=== PATIENT | female | born 1960 | race Caucasian/White ===

== ENCOUNTER 2016-07-28 14:59 | Emergency (ER) | payer OTHER ==
[~2016-07-28] VITALS: Ht 182.9 cm; Wt 77.1 kg
[~2016-07-28 14:59] MED LIST: FLEXERIL10 MG PO; LEVOTHYROXIN0.075 M1 PO; LEVOTHYROXIN0.112 M1 PO; LISINOPRIL 10MG10 MG PO; LORTAB 500 MG-71 TAB PO; MEDROL 4MG. DOSE4 MG PO; MOBIC7.5 MG PO; NORCO 325 MG-51 TAB PO; SKELAXIN 800MG800 MG PO; ULTRAM 50 MG TA50 MG PO; VOLTAREN75 MG PO; XANAX 0.25MG0.25 MG PO; ZOCOR20 MG PO
--- OUTSIDE RECORDS SUMMARY | 2016-07-28 15:42 | External Medical Summary Rpt ---
Author Author [employer] Organization [employer] Address Unknown Phone Unavailable Purpose Continuity of Care Document - through 2016
--- OUTSIDE RECORDS SUMMARY | 2016-07-28 15:42 | External Medical Summary Rpt ---
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 REGION 847.2 847.2 09-11-2012 [facility] LUMBAR [facility] REGION E813.0 E813.0 09-11-2012 [facility] E849.5 E849.5 09-11-2012 [facility] C34.92 Malignant neoplasm of unspecified part of left bronchus or lung Z95.828 Presence of other vascular implants and grafts Allergies, Adverse Reactions, Alerts Type Drug Allergy Adverse Reaction to Substance Substance Reaction Severity Contrast Media, Unknown Unknown Iodine Related TAPE REDNESS/BLISTERS Mild Medications Na ND Rx Da Fi Fi Am Da Di Ph RX Ph St me C No te ll ll ou ys ag ar # ys at rm s nt no ma ic us Or Da si cy ia de te s n re d MA 00 06 0 No PA 90 -2 P 41 8- Lo 32 98 20 ng 5 26 13 er MG 1 Ac TA ti BL ve ET Vital Signs 09-11-2012 11:04 Name Value Interpretat Reference Comment ion Range BP 104 mm[Hg] Diastolic BP Systolic 141 mm[Hg] Heart 71 /min Rate/Pulse O2% 99 % Respiratory 18 /min Rate 09-11-2012 10:23 Name Value Interpretat Reference Comment ion Range BP 105 mm[Hg] Diastolic BP Systolic 148 mm[Hg] Heart 72 /min Rate/Pulse O2% 98 % Respiratory 18 /min Rate Results Labs Lab Lab Date Result Refere Interp Status Commen Order Detail nces retati t Range on Creat Bld-mCnc (07-18-2016 14:46) Creat 1.00 0.60-1. complet BldA-mC 017 mg/dL 30 ed nc 14:46 UA Dipstick Pnl Ur (07-18-2016 14:13) Color [id number] Yellow, complet Ur 017 09 Straw ed 14:13 Yellow color SCT Clarity [id number] Clear complet Ur 017 01 ed 14:13 Clear SCT pH Ur 6.0 5.0-8.0 complet Strip.a 017 ed uto 14:13 Sp Gr 1.010 1.005-1 complet Ur 017 .030 ed Strip 14:13 Glucose 3766556 Negativ complet Ur 017 09 e ed Strip-m 14:13 Negativ Cnc e SCT Ketones 1116565 Negativ complet Ur Ql 017 09 e ed Strip 14:13 Negativ e SCT Bilirub [id number] Negativ complet Ur Ql 017 09 e ed Strip 14:13 Negativ e SCT Hgb Ur [id number] Negativ complet Ql 017 09 e ed Strip.a 14:13 Negativ uto e SCT Prot Ur [id number] Negativ complet Ql 017 09 e ed Strip 14:13 Negativ e SCT Leukocy [id number] Negativ complet te 017 09 e ed esteras 14:13 Negativ e Ur Ql e SCT Strip.a uto Nitrite [id number] Negativ complet Ur Ql 017 09 e ed Strip 14:13 Negativ e SCT Urobili 0.2 0.2 - complet nogen 017 E.U./dL 1.0 ed Ur Ql 14:13 E.U./dL Strip CBC W Diff pnl,unspecified Bld (07-18-2016 14:12) WBC 05-04-2 9.40 3.50-10 complet nRBC 017 10*3/mm .80 ed cor # 14:12 3 Bld RBC # 05-04-2 2.80 3.89-5. complet Bld 017 10*6/mm 14 ed Auto 14:12 3 Hgb -04-2 8.9 11.5-15 complet Bld-mCn 017 g/dL .5 ed c 14:12 Hct VFr 07-18-2 27.8 % 34.5-44 complet Bld 017 .0 ed Auto 14:12 RDW RBC -04-2 26.9 % 11.3-14 complet 017 .5 ed Auto-Rt 14:12 o MCV RBC 04-2 99.6 fL 80.0-99 complet Auto 017 .0 ed 14:12 MCH RBC 04-2 31.8 pg 27.0-31 complet Qn 017 .0 ed Auto 14:12 MCHC 04-2 31.9 32.0-36 complet RBC 017 g/dL .0 ed Auto-mC 14:12 nc PMV Bld 07-18-2 6.6 fL 6.0-12. complet Auto 017 0 ed 14:12 Platele 07-18-2 463 150-450 complet t # Bld 017 10*3/mm ed Auto 14:12 3 Neutrop 07-18-2 84.5 % 41.0-71 complet hils/le 017 .0 ed uk NFr 14:12 Bld Auto Lymphoc 04-2 10.2 % 24.0-44 complet ytes/le 017 .0 ed uk NFr 14:12 Bld Auto Monocyt -04-2 5.3 % 0.0-12. complet es/leuk 017 0 ed NFr 14:12 Bld Auto Neutrop 04-2 7.90 1.50-8. complet hils # 017 10*3/mm 30 ed Bld 14:12 3 Auto Lymphoc -04-2 1.00 0.60-4. complet ytes # 017 10*3/mm 80 ed Bld 14:12 3 Auto Monocyt -04-2 0.50 0.00-1. complet es # 017 10*3/mm 00 ed Bld 14:12 3 Auto Comp Metab 1998 Pnl SerPl (07-18-2016 14:12) Glucose 122 70-100 complet 017 mg/dL ed Bld-mCn 14:12 c BUN 20 9-23 complet Bld-mCn 017 mg/dL ed c 14:12 Creat 1.00 0.60-1. complet Bld-mCn 017 mg/dL 30 ed c 14:12 Sodium 141 132-146 complet Bld-sCn 017 mmol/L ed c 14:12 Potassi 4.2 3.5-5.5 complet um 017 mmol/L ed Bld-sCn 14:12 c Chlorid 105 99-109 complet e 017 mmol/L ed SerPl-s 14:12 Cnc CO2 27.0 20.0-31 complet SerPl-s 017 mmol/L .0 ed Cnc 14:12 Calcium 9.2 8.7-10. complet 017 mg/dL 4 ed XXX-sCn 14:12 c Prot 6.8 5.7-8.2 complet SerPl-m 017 g/dL ed Cnc 14:12 Albumin 4.20 3.20-4. complet 017 g/dL 80 ed SerPl-m 14:12 Cnc ALT 43 U/L 7-40 complet SerPl w 017 ed 14:12 P-5'-P- cCnc AST 26 U/L 0-33 complet SerPl-c 017 ed Cnc 14:12 ALP 104 U/L 25-100 complet SerPl-c 017 ed Cnc 14:12 Bilirub 0.2 0.3-1.2 complet 017 mg/dL ed SerPl-m 14:12 Cnc GFR/BSA 58 >60 complet .pred 017 mL/min/ ed SerPl 14:12 1.73 MDRD-Ar VRat Globuli 2.6 complet n Ur 017 gm/dL ed Elph-mC 14:12 nc Albumin 1.6 1.5-2.5 complet /Glob 017 g/dL ed SerPl 14:12 BUN/Cre 05-04-2 20.0 7.0-25. complet at 017 0 ed SerPl 14:12 Anion 2 9.0 3.0-11. complet Gap3 017 mmol/L 0 ed SerPl-s 14:12 Cnc Creat Bld-mCnc (06-27-2016 13:33) Creat 06-27-2 0.90 0.60-1. complet BldA-mC 017 mg/dL 30 ed nc 13:33 Comp Metab 1998 Pnl SerPl (06-27-2016 13:14) Albumin 06-27-2 4.20 3.20-4. complet 017 g/dL 80 ed SerPl-m 13:14 Cnc AST 31 U/L 0-33 complet SerPl-c 017 ed Cnc 13:14 ALP 84 U/L 25-100 complet SerPl-c 017 ed Cnc 13:14 Bilirub 0.3 0.3-1.2 complet 017 mg/dL ed SerPl-m 13:14 Cnc GFR/BSA 65 >60 complet .pred 017 mL/min/ ed SerPl 13:14 1.73 MDRD-Ar VRat Globuli 2.7 complet n Ur 017 gm/dL ed Elph-mC 13:14 nc Albumin 1.6 1.5-2.5 complet /Glob 017 g/dL ed SerPl 13:14 BUN/Cre 32.2 7.0-25. complet at 017 0 ed SerPl 13:14 Anion 06-27-2 5.0 3.0-11. complet Gap3 017 mmol/L 0 ed SerPl-s 13:14 Cnc Glucose 125 70-100 complet 017 mg/dL ed Bld-mCn 13:14 c Prot 6.9 5.7-8.2 complet SerPl-m 017 g/dL ed Cnc 13:14 Calcium 9.5 8.7-10. complet 017 mg/dL 4 ed XXX-sCn 13:14 c CO2 29.0 20.0-31 complet SerPl-s 017 mmol/L .0 ed Cnc 13:14 Chlorid 04-13-2 103 99-109 complet e 017 mmol/L ed SerPl-s 13:14 Cnc Potassi 4.0 3.5-5.5 complet um 017 mmol/L ed Bld-sCn 13:14 c Sodium 137 132-146 complet Bld-sCn 017 mmol/L ed c 13:14 Creat 0.90 0.60-1. complet Bld-mCn 017 mg/dL 30 ed c 13:14 BUN 29 9-23 complet Bld-mCn 017 mg/dL ed c 13:14 ALT 50 U/L 7-40 complet SerPl w 017 ed 13:14 P-5'-P- cCnc CBC W Diff pnl,unspecified Bld (06-27-2016 13:14) Monocyt 0.60 0.00-1. complet es # 017 10*3/mm 00 ed Bld 13:14 3 Auto Lymphoc 1.40 0.60-4. complet ytes # 017 10*3/mm 80 ed Bld 13:14 3 Auto Neutrop 5.30 1.50-8. complet hils # 017 10*3/mm 30 ed Bld 13:14 3 Auto Monocyt 8.0 % 0.0-12. complet es/leuk 017 0 ed NFr 13:14 Bld Auto Lymphoc 19.5 % 24.0-44 complet ytes/le 017 .0 ed uk NFr 13:14 Bld Auto Neutrop 72.5 % 41.0-71 complet hils/le 017 .0 ed uk NFr 13:14 Bld Auto Platele 555 150-450 complet t # Bld 017 10*3/mm ed Auto 13:14 3 PMV Bld 6.4 fL 6.0-12. complet Auto 017 0 ed 13:14 MCHC 32.8 32.0-36 complet RBC 017 g/dL .0 ed Auto-mC 13:14 nc MCH RBC 31.3 pg 27.0-31 complet Qn 017 .0 ed Auto 13:14 MCV RBC 95.4 fL 80.0-99 complet Auto 017 .0 ed 13:14 RDW RBC 24.0 % 11.3-14 complet 017 .5 ed Auto-Rt 13:14 o Hct VFr 29.4 % 34.5-44 complet Bld 017 .0 ed Auto 13:14 Hgb 9.7 11.5-15 complet Bld-mCn 017 g/dL .5 ed c 13:14 RBC # 06-27-2 3.09 3.89-5. complet Bld 017 10*6/mm 14 ed Auto 13:14 3 WBC 7.30 3.50-10 complet nRBC 017 10*3/mm .80 ed cor # 13:14 3 Bld Comp Metab 1997 Pnl SerPl (06-23-2016 11:27) Anion 7.0 3.0-11. complet Gap3 017 mmol/L 0 ed SerPl-s 11:27 Cnc BUN/Cre 30.0 7.0-25. complet at 017 0 ed SerPl 11:27 Albumin 1.7 1.5-2.5 complet /Glob 017 g/dL ed SerPl 11:27 Globuli 2.6 complet n Ur 017 gm/dL ed Elph-mC 11:27 nc GFR/BSA 58 >60 complet .pred 017 mL/min/ ed SerPl 11:27 1.73 MDRD-Ar VRat Bilirub 0.2 0.3-1.2 complet 017 mg/dL ed SerPl-m 11:27 Cnc ALP 107 U/L 25-100 complet SerPl-c 017 ed Cnc 11:27 AST 29 U/L 0-33 complet SerPl-c 017 ed Cnc 11:27 ALT 56 U/L 7-40 complet SerPl w 017 ed 11:27 P-5'-P- cCnc Albumin 4.30 3.20-4. complet 017 g/dL 80 ed SerPl-m 11:27 Cnc Prot 6.9 5.7-8.2 complet SerPl-m 017 g/dL ed Cnc 11:27 Calcium 9.6 8.7-10. complet 017 mg/dL 4 ed XXX-sCn 11:27 c CO2 25.0 20.0-31 complet SerPl-s 017 mmol/L .0 ed Cnc 11:27 Chlorid 109 99-109 complet e 017 mmol/L ed SerPl-s 11:27 Cnc Potassi 4.5 3.5-5.5 complet um 017 mmol/L ed Bld-sCn 11:27 c Sodium 141 132-146 complet Bld-sCn 017 mmol/L ed c 11:27 Creat 1.00 0.60-1. complet Bld-mCn 017 mg/dL 30 ed c 11:27 BUN 30 9-23 complet Bld-mCn 017 mg/dL ed c 11:27 Glucose 84 70-100 complet 017 mg/dL ed Bld-mCn 11:27 c Total Cells Counted Bld (06-23-2016 11:27) Plat [id number] Normal complet morph 017 01 ed Bld 11:27 Normal result SCT WBC [id number] Normal complet morph 017 01 ed Bld 11:27 Normal result SCT RBC [id number] Normal complet morph 017 01 ed Bld 11:27 Normal result SCT CBC W Diff pnl,unspecified Bld (06-23-2016 11:27) MCV RBC 98.5 fL 80.0-99 complet Auto 017 .0 ed 11:27 Hct VFr 32.9 % 34.5-44 complet Bld 017 .0 ed Auto 11:27 Hgb 10.5 11.5-15 complet Bld-mCn 017 g/dL .5 ed c 11:27 RBC # 09-2 3.34 3.89-5. complet Bld 017 10*6/mm 14 ed Auto 11:27 3 WBC 06-23- 9.59 3.50-10 complet nRBC 017 10*3/mm .80 ed cor # 11:27 3 Bld Imm 0.09 0.00-0. complet Granulo 017 10*3/mm 03 ed cytes # 11:27 3 Bld Basophi 09-2 0.02 0.00-0. complet ls # 017 10*3/mm 20 ed Bld 11:27 3 Auto Eosinop 09-2 0.03 0.10-0. complet hil # 017 10*3/mm 30 ed Bld 11:27 3 Auto Monocyt 09-2 1.03 0.00-1. complet es # 017 10*3/mm 00 ed Bld 11:27 3 Auto Lymphoc 09-2 3.91 0.60-4. complet ytes # 017 10*3/mm 80 ed Bld 11:27 3 Auto Neutrop 06-23-2 4.51 1.50-8. complet hils # 017 10*3/mm 30 ed Bld 11:27 3 Auto Imm 06-23-2 0.9 % 0.0-0.6 complet Granulo 017 ed cytes/l 11:27 euk NFr Bld Basophi 2 0.2 % 0.0-1.0 complet ls/leuk 017 ed NFr 11:27 Bld Auto Eosinop 06-23-2 0.3 % 0.0-3.0 complet hil/patricia 017 ed k NFr 11:27 Bld Auto Monocyt 2 10.7 % 0.0-12. complet es/leuk 017 0 ed NFr 11:27 Bld Auto Lymphoc 06-23-2 40.8 % 24.0-44 complet ytes/le 017 .0 ed uk NFr 11:27 Bld Auto Neutrop 06-23-2 47.1 % 41.0-71 complet hils/le 017 .0 ed uk NFr 11:27 Bld Auto Platele 387 150-450 complet t # Bld 017 10*3/mm ed Auto 11:27 3 PMV Bld 9.2 fL 6.0-12. complet Auto 017 0 ed 11:27 RDW RBC 65.2 fl 37.0-54 complet Auto 017 .0 ed 11:27 RDW RBC 06-23-2 20.4 % 11.3-14 complet 017 .5 ed Auto-Rt 11:27 o MCHC 31.9 32.0-36 complet RBC 017 g/dL .0 ed Auto-mC 11:27 nc MCH RBC 31.4 pg 27.0-31 complet Qn 017 .0 ed Auto 11:27 aPTT PPP (06-11-2016 07:48) aPTT 24.8 24.0-31 complet PPP 017 seconds .0 ed 07:48 PT PPP (06-11-2016 07:48) INR PPP 0.92 complet 017 ed 07:48 PT PPP 10.0 9.6-11. complet 017 Seconds 5 ed 07:48 Platelet # BldCo (06-11-2016 07:48) Platele 378 150-450 complet t # Bld 017 10*3/mm ed Auto 07:48 3 Creat Bld-mCnc (06-06-2016 12:47) Creat 1.10 0.60-1. complet BldA-mC 017 mg/dL 30 ed nc 12:47 Comp Metab 1998 Pnl SerPl (06-06-2016 11:48) Anion 6.0 3.0-11. complet Gap3 017 mmol/L 0 ed SerPl-s 11:48 Cnc BUN/Cre 22.0 7.0-25. complet at 017 0 ed SerPl 11:48 Albumin 1.4 1.5-2.5 complet /Glob 017 g/dL ed SerPl 11:48 Globuli 3.0 complet n Ur 017 gm/dL ed Elph-mC 11:48 nc GFR/BSA 58 >60 complet .pred 017 mL/min/ ed SerPl 11:48 1.73 MDRD-Ar VRat Bilirub 0.2 0.3-1.2 complet 017 mg/dL ed SerPl-m 11:48 Cnc ALP 116 U/L 25-100 complet SerPl-c 017 ed Cnc 11:48 AST 27 U/L 0-33 complet SerPl-c 017 ed Cnc 11:48 ALT 42 U/L 7-40 complet SerPl w 017 ed 11:48 P-5'-P- cCnc Albumin 06-06-2 4.30 3.20-4. complet 017 g/dL 80 ed SerPl-m 11:48 Cnc Prot 23-2 7.3 5.7-8.2 complet SerPl-m 017 g/dL ed Cnc 11:48 Calcium 23-2 9.7 8.7-10. complet 017 mg/dL 4 ed XXX-sCn 11:48 c CO2 23-2 26.0 20.0-31 complet SerPl-s 017 mmol/L .0 ed Cnc 11:48 Chlorid 23-2 107 99-109 complet e 017 mmol/L ed SerPl-s 11:48 Cnc Potassi 06-06-2 4.6 3.5-5.5 complet um 017 mmol/L ed Bld-sCn 11:48 c Sodium 06-06-2 139 132-146 complet Bld-sCn 017 mmol/L ed c 11:48 Creat 06-06-2 1.00 0.60-1. complet Bld-mCn 017 mg/dL 30 ed c 11:48 BUN 23-2 22 9-23 complet Bld-mCn 017 mg/dL ed c 11:48 Glucose 23-2 95 70-100 complet 017 mg/dL ed Bld-mCn 11:48 c UA Dipstick Pnl Ur (06-06-2016 11:48) Urobili 23-2 0.2 0.2 - complet nogen 017 E.U./dL 1.0 ed Ur Ql 11:48 E.U./dL Strip Nitrite 06-06- [id number] Negativ complet Ur Ql 017 09 e ed Strip 11:48 Negativ e SCT Leukocy 2971219 Negativ complet te 017 09 e ed esteras 11:48 Negativ e Ur Ql e SCT Strip.a uto Prot Ur 7234609 Negativ complet Ql 017 09 e ed Strip 11:48 Negativ e SCT Hgb Ur 9797902 Negativ complet Ql 017 04 e ed Strip.a 11:48 Small uto SCT Bilirub 6712366 Negativ complet Ur Ql 017 09 e ed Strip 11:48 Negativ e SCT Ketones 23-2 6027837 Negativ complet Ur Ql 017 09 e ed Strip 11:48 Negativ e SCT Glucose 23-2 2477963 Negativ complet Ur 017 09 e ed Strip-m 11:48 Negativ Cnc e SCT Sp Gr 06-06-2 1.025 1.005-1 complet Ur 017 .030 ed Strip 11:48 pH Ur 23-2 6.0 5.0-8.0 complet Strip.a 017 ed uto 11:48 Clarity -23-2 [id number] Clear complet Ur 017 01 ed 11:48 Clear SCT Color -23-2 5324941 Yellow, complet Ur 017 09 Straw ed 11:48 Yellow color SCT CBC W Diff pnl,unspecified Bld (06-06-2016 11:48) Monocyt -23-2 0.70 0.00-1. complet es # 017 10*3/mm 00 ed Bld 11:48 3 Auto Lymphoc -23-2 1.70 0.60-4. complet ytes # 017 10*3/mm 80 ed Bld 11:48 3 Auto Neutrop -23-2 5.50 1.50-8. complet hils # 017 10*3/mm 30 ed Bld 11:48 3 Auto Monocyt -23-2 9.4 % 0.0-12. complet es NFr 017 0 ed Bld 11:48 Auto Lymphoc 03-23-2 21.2 % 24.0-44 complet ytes 017 .0 ed NFr Bld 11:48 Auto Neutrop -23-2 69.4 % 41.0-71 complet hils 017 .0 ed NFr Bld 11:48 Auto Platele -23-2 634 150-450 complet t # Bld 017 10*3/mm ed Auto 11:48 3 PMV Bld -23-2 6.4 fL 6.0-12. complet Auto 017 0 ed 11:48 MCHC -23-2 31.3 32.0-36 complet RBC 017 g/dL .0 ed Auto-mC 11:48 nc MCH RBC -23-2 29.1 pg 27.0-31 complet Qn 017 .0 ed Auto 11:48 MCV RBC 03-23-2 93.2 fL 80.0-99 complet Auto 017 .0 ed 11:48 RDW RBC 06-06-2 19.3 % 11.3-14 complet 017 .5 ed Auto-Rt 11:48 o Hct VFr 2 33.0 % 34.5-44 complet Bld 017 .0 ed Auto 11:48 Hgb 06-06-2 10.3 11.5-15 complet Bld-mCn 017 g/dL .5 ed c 11:48 RBC # 23-2 3.54 3.89-5. complet Bld 017 10*6/mm 14 ed Auto 11:48 3 WBC 06-06-2 7.90 3.50-10 complet nRBC 017 10*3/mm .80 ed cor # 11:48 3 Bld Creat Bld-mCnc (05-16-2016 10:53) Creat 05-16-2 0.80 0.60-1. complet BldA-mC 017 mg/dL 30 ed nc 10:53 CBC W Diff pnl,unspecified Bld (05-16-2016 10:28) Monocyt 02-2 0.60 0.00-1. complet es # 017 10*3/mm 00 ed Bld 10:28 3 Auto Lymphoc 05-16-2 1.70 0.60-4. complet ytes # 017 10*3/mm 80 ed Bld 10:28 3 Auto Neutrop 05-16-2 7.20 1.50-8. complet hils # 017 10*3/mm 30 ed Bld 10:28 3 Auto Monocyt 05-16-2 5.8 % 0.0-12. complet es NFr 017 0 ed Bld 10:28 Auto Lymphoc 05-16-2 18.3 % 24.0-44 complet ytes 017 .0 ed NFr Bld 10:28 Auto Neutrop 2 75.9 % 41.0-71 complet hils 017 .0 ed NFr Bld 10:28 Auto Platele 627 150-450 complet t # Bld 017 10*3/mm ed Auto 10:28 3 PMV Bld 6.7 fL 6.0-12. complet Auto 017 0 ed 10:28 MCHC 31.9 32.0-36 complet RBC 017 g/dL .0 ed Auto-mC 10:28 nc MCH RBC 29.1 pg 27.0-31 complet Qn 017 .0 ed Auto 10:28 MCV RBC 05-16- 91.1 fL 80.0-99 complet Auto 017 .0 ed 10:28 RDW RBC 05-16-2 16.3 % 11.3-14 complet 017 .5 ed Auto-Rt 10:28 o Hct VFr 36.4 % 34.5-44 complet Bld 017 .0 ed Auto 10:28 Hgb 11.6 11.5-15 complet Bld-mCn 017 g/dL .5 ed c 10:28 RBC # 05-16-2 4.00 3.89-5. complet Bld 017 10*6/mm 14 ed Auto 10:28 3 WBC 9.50 3.50-10 complet nRBC 017 10*3/mm .80 ed cor # 10:28 3 Bld UA Dipstick Pnl Ur (05-16-2016 10:28) Urobili 0.2 0.2 - complet nogen 017 E.U./dL 1.0 ed Ur Ql 10:28 E.U./dL Strip Nitrite [id number] Negativ complet Ur Ql 017 09 e ed Strip 10:28 Negativ e SCT Leukocy 1071127 Negativ complet te 017 09 e ed esteras 10:28 Negativ e Ur Ql e SCT Strip.a uto Prot Ur 9785704 Negativ complet Ql 017 09 e ed Strip 10:28 Negativ e SCT Hgb Ur 4203724 Negativ complet Ql 017 09 e ed Strip.a 10:28 Negativ uto e SCT Bilirub 1440865 Negativ complet Ur Ql 017 09 e ed Strip 10:28 Negativ e SCT Ketones 8142092 Negativ complet Ur Ql 017 09 e ed Strip 10:28 Negativ e SCT Glucose 5506238 Negativ complet Ur 017 09 e ed Strip-m 10:28 Negativ Cnc e SCT Sp Gr 03-02-2 1.010 1.005-1 complet Ur 017 .030 ed Strip 10:28 pH Ur 6.0 5.0-8.0 complet Strip.a 017 ed uto 10:28 Clarity 5620841 Clear complet Ur 017 01 ed 10:28 Clear SCT Color 5930343 Yellow, complet Ur 017 09 Straw ed 10:28 Yellow color SCT Comp Metab 1998 Pnl SerPl (05-16-2016 10:27) Anion 6.0 3.0-11. complet Gap3 017 mmol/L 0 ed SerPl-s 10:27 Cnc BUN/Cre 22.5 7.0-25. complet at 017 0 ed SerPl 10:27 Albumin 1.5 1.5-2.5 complet /Glob 017 g/dL ed SerPl 10:27 Globuli 3.0 complet n Ur 017 gm/dL ed Elph-mC 10:27 nc GFR/BSA 74 >60 complet .pred 017 mL/min/ ed SerPl 10:27 1.73 MDRD-Ar VRat Bilirub 0.3 0.3-1.2 complet 017 mg/dL ed SerPl-m 10:27 Cnc ALP 97 U/L 25-100 complet SerPl-c 017 ed Cnc 10:27 AST 16 U/L 0-33 complet SerPl-c 017 ed Cnc 10:27 ALT 35 U/L 7-40 complet SerPl w 017 ed 10:27 P-5'-P- cCnc Albumin 4.40 3.20-4. complet 017 g/dL 80 ed SerPl-m 10:27 Cnc Prot 7.4 5.7-8.2 complet SerPl-m 017 g/dL ed Cnc 10:27 Calcium 9.8 8.7-10. complet 017 mg/dL 4 ed XXX-sCn 10:27 c CO2 26.0 20.0-31 complet SerPl-s 017 mmol/L .0 ed Cnc 10:27 Chlorid 104 99-109 complet e 017 mmol/L ed SerPl-s 10:27 Cnc Potassi 4.0 3.5-5.5 complet um 017 mmol/L ed Bld-sCn 10:27 c Sodium 136 132-146 complet Bld-sCn 017 mmol/L ed c 10:27 Creat 0.80 0.60-1. complet Bld-mCn 017 mg/dL 30 ed c 10:27 BUN 18 9-23 complet Bld-mCn 017 mg/dL ed c 10:27 Glucose 109 70-100 complet 017 mg/dL ed Bld-mCn 10:27 c Creat Bld-mCnc (04-25-2016 09:57) Creat 0.90 0.60-1. complet BldA-mC 017 mg/dL 30 ed nc 09:57 Comp Metab 1998 Pnl SerPl (04-25-2016 09:41) Anion 11.0 3.0-11. complet Gap3 017 mmol/L 0 ed SerPl-s 09:41 Cnc BUN/Cre 27.5 7.0-25. complet at 017 0 ed SerPl 09:41 Albumin 1.7 1.5-2.5 complet /Glob 017 g/dL ed SerPl 09:41 Globuli 2.9 complet n Ur 017 gm/dL ed Elph-mC 09:41 nc GFR/BSA 74 >60 complet .pred 017 mL/min/ ed SerPl 09:41 1.73 MDRD-Ar VRat Bilirub 0.3 0.3-1.2 complet 017 mg/dL ed SerPl-m 09:41 Cnc ALP 100 U/L 25-100 complet SerPl-c 017 ed Cnc 09:41 AST 20 U/L 0-33 complet SerPl-c 017 ed Cnc 09:41 ALT 29 U/L 7-40 complet SerPl w 017 ed 09:41 P-5'-P- cCnc Albumin 4.80 3.20-4. complet 017 g/dL 80 ed SerPl-m 09:41 Cnc Prot 7.7 5.7-8.2 complet SerPl-m 017 g/dL ed Cnc 09:41 Calcium 10.1 8.7-10. complet 017 mg/dL 4 ed XXX-sCn 09:41 c CO2 22.0 20.0-31 complet SerPl-s 017 mmol/L .0 ed Cnc 09:41 Chlorid 101 99-109 complet e 017 mmol/L ed SerPl-s 09:41 Cnc Potassi 4.2 3.5-5.5 complet um 017 mmol/L ed Bld-sCn 09:41 c Sodium 134 132-146 complet Bld-sCn 017 mmol/L ed c 09:41 Creat 0.80 0.60-1. complet Bld-mCn 017 mg/dL 30 ed c 09:41 BUN 22 9-23 complet Bld-mCn 017 mg/dL ed c 09:41 Glucose 147 70-100 complet 017 mg/dL ed Bld-mCn 09:41 c CBC W Diff pnl,unspecified Bld (04-25-2016 09:41) Monocyt 04-25- 0.40 0.00-1. complet es # 017 10*3/mm 00 ed Bld 09:41 3 Auto Lymphoc 2 1.10 0.60-4. complet ytes # 017 10*3/mm 80 ed Bld 09:41 3 Auto Neutrop 7.80 1.50-8. complet hils # 017 10*3/mm 30 ed Bld 09:41 3 Auto Monocyt 2 4.1 % 0.0-12. complet es NFr 017 0 ed Bld 09:41 Auto Lymphoc 11.6 % 24.0-44 complet ytes 017 .0 ed NFr Bld 09:41 Auto Neutrop 84.3 % 41.0-71 complet hils 017 .0 ed NFr Bld 09:41 Auto Platele 466 150-450 complet t # Bld 017 10*3/mm ed Auto 09:41 3 PMV Bld 7.4 fL 6.0-12. complet Auto 017 0 ed 09:41 MCHC 32.7 32.0-36 complet RBC 017 g/dL .0 ed Auto-mC 09:41 nc MCH RBC 29.9 pg 27.0-31 complet Qn 017 .0 ed Auto 09:41 MCV RBC 91.3 fL 80.0-99 complet Auto 017 .0 ed 09:41 RDW RBC 13.7 % 11.3-14 complet 017 .5 ed Auto-Rt 09:41 o Hct VFr 38.4 % 34.5-44 complet Bld 017 .0 ed Auto 09:41 Hgb 12.6 11.5-15 complet Bld-mCn 017 g/dL .5 ed c 09:41 RBC # 04-25-2 4.20 3.89-5. complet Bld 017 10*6/mm 14 ed Auto 09:41 3 WBC 9.20 3.50-10 complet nRBC 017 10*3/mm .80 ed cor # 09:41 3 Bld UA Dipstick Pnl Ur (04-25-2016 09:41) Urobili 0.2 0.2 - complet nogen 017 E.U./dL 1.0 ed Ur Ql 09:41 E.U./dL Strip Nitrite [id number] Negativ complet Ur Ql 017 09 e ed Strip 09:41 Negativ e SCT Leukocy [id number] Negativ complet te 017 09 e ed esteras 09:41 Negativ e Ur Ql e SCT Strip.a uto Prot Ur [id number] Negativ complet Ql 017 09 e ed Strip 09:41 Negativ e SCT Hgb Ur [id number] Negativ complet Ql 017 09 e ed Strip.a 09:41 Negativ uto e SCT Bilirub [id number] Negativ complet Ur Ql 017 09 e ed Strip 09:41 Negativ e SCT Ketones [id number] Negativ complet Ur Ql 017 09 e ed Strip 09:41 Negativ e SCT Glucose [id number] Negativ complet Ur 017 09 e ed Strip-m 09:41 Negativ Cnc e SCT Sp Gr 1.010 1.005-1 complet Ur 017 .030 ed Strip 09:41 pH Ur 5.0 5.0-8.0 complet Strip.a 017 ed uto 09:41 Clarity [id number] Clear complet Ur 017 01 ed 09:41 Clear SCT Color [id number] Yellow, complet Ur 017 09 Straw ed 09:41 Yellow color SCT PT PPP (04-18-2016 08:46) INR PPP 0.97 complet 017 ed 08:46 PT PPP 10.6 9.6-11. complet 017 Seconds 5 ed 08:46 aPTT PPP (04-18-2016 08:46) aPTT 27.7 24.0-31 complet PPP 017 seconds .0 ed 08:46 Platelet # BldCo (04-18-2016 08:46) Platele 396 150-450 complet t # Bld 017 10*3/mm ed Auto 08:46 3 Bas Metab 1999 Pnl SerPl (04-04-2016 10:54) Glucose 89 70-130 complet BldC 017 mg/dL ed Glucomt 10:54 r-mCnc Bas Metab 1999 Pnl SerPl (03-18-2016 12:37) Anion 9.0 3.0-11. complet Gap3 017 mmol/L 0 ed SerPl-s 12:37 Cnc BUN/Cre 18.9 7.0-25. complet at 017 0 ed SerPl 12:37 GFR/BSA 65 >60 complet .pred 017 mL/min/ ed SerPl 12:37 1.73 MDRD-Ar VRat Calcium 9.4 8.7-10. complet 017 mg/dL 4 ed XXX-sCn 12:37 c CO2 28.0 20.0-31 complet SerPl-s 017 mmol/L .0 ed Cnc 12:37 Chlorid 01-02-2 104 99-109 complet e 017 mmol/L ed SerPl-s 12:37 Cnc Potassi 03-18-2 4.6 3.5-5.5 complet um 017 mmol/L ed Bld-sCn 12:37 c Sodium 02-2 141 132-146 complet Bld-sCn 017 mmol/L ed c 12:37 Creat 02-2 0.90 0.60-1. complet Bld-mCn 017 mg/dL 30 ed c 12:37 BUN 02-2 17 9-23 complet Bld-mCn 017 mg/dL ed c 12:37 Glucose 02-2 93 70-100 complet 017 mg/dL ed Bld-mCn 12:37 c CBC W Diff pnl,unspecified Bld (03-18-2016 12:37) Imm -02-2 0.00 0.00-0. complet Granulo 017 10*3/mm 03 ed cytes # 12:37 3 Bld Basophi 02-2 0.02 0.00-0. complet ls # 017 10*3/mm 20 ed Bld 12:37 3 Auto Eosinop 02-2 0.07 0.10-0. complet hil # 017 10*3/mm 30 ed Bld 12:37 3 Auto Monocyt 02-2 0.78 0.00-1. complet es # 017 10*3/mm 00 ed Bld 12:37 3 Auto Lymphoc 02-2 1.78 0.60-4. complet ytes # 017 10*3/mm 80 ed Bld 12:37 3 Auto Neutrop 02-2 4.29 1.50-8. complet hils # 017 10*3/mm 30 ed Bld 12:37 3 Auto Imm -02-2 0.0 % 0.0-0.6 complet Granulo 017 ed cytes 12:37 NFr Bld Basophi -02-2 0.3 % 0.0-1.0 complet ls NFr 017 ed Bld 12:37 Auto Eosinop -02-2 1.0 % 0.0-3.0 complet hil NFr 017 ed Bld 12:37 Auto Monocyt 02-2 11.2 % 0.0-12. complet es NFr 017 0 ed Bld 12:37 Auto Lymphoc 01-02-2 25.6 % 24.0-44 complet ytes 017 .0 ed NFr Bld 12:37 Auto Neutrop 02-2 61.9 % 41.0-71 complet hils 017 .0 ed NFr Bld 12:37 Auto Platele 03-18-2 399 150-450 complet t # Bld 017 10*3/mm ed Auto 12:37 3 PMV Bld 03-18-2 9.2 fL 6.0-12. complet Auto 017 0 ed 12:37 RDW RBC 02-2 49.2 fl 37.0-54 complet Auto 017 .0 ed 12:37 RDW RBC 02-2 14.4 % 11.3-14 complet 017 .5 ed Auto-Rt 12:37 o MCHC 02-2 33.0 32.0-36 complet RBC 017 g/dL .0 ed Auto-mC 12:37 nc MCH RBC 03-18-2 30.7 pg 27.0-31 complet Qn 017 .0 ed Auto 12:37 MCV RBC 03-18-2 93.0 fL 80.0-99 complet Auto 017 .0 ed 12:37 Hct VFr 2 37.3 % 34.5-44 complet Bld 017 .0 ed Auto 12:37 Hgb 02-2 12.3 11.5-15 complet Bld-mCn 017 g/dL .5 ed c 12:37 WBC 03-18-2 6.94 3.50-10 complet nRBC 017 10*3/mm .80 ed cor # 12:37 3 Bld RBC # -02-2 4.01 3.89-5. complet Bld 017 10*6/mm 14 ed Auto 12:37 3 Fungus XXX PAS Stn (02-29-2016 08:20) Gie Stn No complet XXX 016 Pneumoc ed 08:20 ystis jirovec ci (former ly Pneumoc ystis carinii ) noted on smear. Gie Stn No complet XXX 016 yeast ed 08:20 or hyphal element s seen Fungus XXX Cult (02-28-2016 11:15) Fungus No complet Wnd 016 fungus ed Cult 11:15 isolate d at 6 weeks Mycobacterium XXX Cult (02-28-2016 11:15) Night No acid complet blue 016 fast ed stain 11:15 bacilli Tiss seen on concent rated smear Chymotr No AFB complet yp Ab 016 isolate ed Ser-aCn 11:15 d at 6 c weeks Bacteria XXX Resp Cult (02-28-2016 11:15) Gram 02-27- No WBCs complet Stn XXX 016 or ed 11:15 organis ms seen Glucose Fld-mCnc (02-28-2016 10:36) Glucose 103 complet 016 mg/dL ed Fld-mCn 10:36 c LDH Fld L to P-cCnc (02-28-2016 10:36) LDH 107 U/L complet Fld-cCn 016 ed c 10:36 Fungus XXX Cult (02-28-2016 10:36) Fungus No complet Wnd 016 fungus ed Cult 10:36 isolate d at 6 weeks Mycobacterium XXX Cult (02-28-2016 10:36) Night No acid complet blue 016 fast ed stain 10:36 bacilli Tiss seen on concent rated smear Chymotr No AFB complet yp Ab 016 isolate ed Ser-aCn 10:36 d at 6 c weeks Bacteria Fld Cult (02-28-2016 10:36) Gram No WBCs active Stn XXX 016 or 10:36 organis ms seen Bacteri No active a Fld 016 growth Cult 10:36 at 6 days Fungus XXX PAS Stn (02-28-2016 10:36) Gie Stn No complet XXX 016 yeast ed 10:36 or hyphal element s seen Prot Fld-mCnc (02-28-2016 10:36) Prot 5.5 complet Fld-mCn 016 g/dL ed c 10:36 CBC (hemogram) Bld Auto (02-27-2016 14:16) WBC 8.16 3.50-10 complet nRBC 016 10*3/mm .80 ed cor # 14:16 3 Bld Hgb 13.9 11.5-15 complet Bld-mCn 016 g/dL .5 ed c 14:16 Hct VFr 41.2 % 34.5-44 complet Bld 016 .0 ed Auto 14:16 MCV RBC 91.8 fL 80.0-99 complet Auto 016 .0 ed 14:16 MCH RBC 31.0 pg 27.0-31 complet Qn 016 .0 ed Auto 14:16 MCHC 33.7 32.0-36 complet RBC 016 g/dL .0 ed Auto-mC 14:16 nc RDW RBC 14.0 % 11.3-14 complet 016 .5 ed Auto-Rt 14:16 o RDW RBC 46.9 fl 37.0-54 complet Auto 016 .0 ed 14:16 PMV Bld 8.8 fL 6.0-12. complet Auto 016 0 ed 14:16 Platele 556 150-450 complet t # Bld 016 10*3/mm ed Auto 14:16 3 RBC # 02-26-2 4.49 3.89-5. complet Bld 016 10*6/mm 14 ed Auto 14:16 3 aPTT PPP (02-27-2016 14:16) aPTT 32.0 24.0-31 complet PPP 016 seconds .0 ed 14:16 Comp Metab 1997 Pnl SerPl (02-27-2016 14:16) Glucose 89 70-100 complet 016 mg/dL ed Bld-mCn 14:16 c BUN 17 9-23 complet Bld-mCn 016 mg/dL ed c 14:16 Creat 1.10 0.60-1. complet Bld-mCn 016 mg/dL 30 ed c 14:16 Sodium 02-26- 137 132-146 complet Bld-sCn 016 mmol/L ed c 14:16 Potassi 02-26-2 4.0 3.5-5.5 complet um 016 mmol/L ed Bld-sCn 14:16 c Chlorid 02-26- 101 99-109 complet e 016 mmol/L ed SerPl-s 14:16 Cnc CO2 02-26- 28.0 20.0-31 complet SerPl-s 016 mmol/L .0 ed Cnc 14:16 Calcium 02-26-2 10.1 8.7-10. complet 016 mg/dL 4 ed XXX-sCn 14:16 c Prot 02-26-2 8.0 5.7-8.2 complet SerPl-m 016 g/dL ed Cnc 14:16 Albumin -13-2 4.90 3.20-4. complet 016 g/dL 80 ed SerPl-m 14:16 Cnc ALT 02-26-2 60 U/L 7-40 complet SerPl w 016 ed 14:16 P-5'-P- cCnc AST 02-26- 56 U/L 0-33 complet SerPl-c 016 ed Cnc 14:16 ALP 02-26- 121 U/L 25-100 complet SerPl-c 016 ed Cnc 14:16 Bilirub 02-26- 0.3 0.3-1.2 complet 016 mg/dL ed SerPl-m 14:16 Cnc GFR/BSA 52 >60 complet .pred 016 mL/min/ ed SerPl 14:16 1.73 MDRD-Ar VRat Globuli 02-26-2 3.1 complet n Ur 016 gm/dL ed Elph-mC 14:16 nc Albumin 02-26-2 1.6 complet /Glob 016 g/dL ed SerPl 14:16 BUN/Cre 02-26- 15.5 7.0-25. complet at 016 0 ed SerPl 14:16 Anion 02-26-2 8.0 3.0-11. complet Gap3 016 mmol/L 0 ed SerPl-s 14:16 Cnc Encounters Encounter Start End Date Code Location Performer Type Date Emergency RAEGAN Dillard (ER) 3 09:57 3 11:24 [facility] Joo Babcock
--- OUTSIDE RECORDS SUMMARY | 2016-07-28 15:42 | External Medical Summary Rpt ---
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 Name Role Phone Joo Dillard Unavailable Unavailable AURA DESIR, Joo Dillard III, MD Purpose Continuity of Care Document - 09-11-2012 through 2016 Problems Code Diagnosis DOS Provider Status 305.1 305.1 09-11-2012 [place] TOBACCO USE [facility] 401.9 401.9 09-11-2012 [place] HYPERTENSIO [facility] 847.0 847.0 09-11-2012 [facility] 847.1 847.1 09-11-2012 [facility] THORACIC [facility] 847.2 847.2 09-11-2012 [facility] LUMBAR [facility] E813.0 E813.0 09-11-2012 [facility] E849.5 E849.5 09-11-2012 [facility] C34.92 Malignant neoplasm of unspecified part [...] UA Dipstick Pnl Ur (07-18-2016 14:13) Color 2566222 Yellow, complet Ur 017 09 Straw ed 14:13 Yellow color SCT Clarity [id number] Clear complet Ur 017 01 ed 14:13 Clear SCT pH Ur 6.0 5.0-8.0 complet Strip.a 017 ed uto 14:13 Sp Gr 1.010 1.005-1 complet Ur 017 .030 ed Strip 14:13 Glucose 6526901 Negativ complet Ur 017 09 e ed Strip-m 14:13 Negativ Cnc e SCT Ketones [id number] Negativ complet Ur Ql 017 09 e ed Strip 14:13 Negativ e SCT Bilirub 1536335 Negativ complet Ur Ql 017 09 e ed Strip 14:13 Negativ e SCT Hgb Ur [id number] Negativ complet Ql 017 09 e ed Strip.a 14:13 Negativ uto e SCT Prot Ur 1528390 Negativ complet Ql 017 09 e ed Strip 14:13 Negativ e SCT Leukocy 0898612 Negativ complet te 017 09 e ed esteras 14:13 Negativ e Ur Ql e SCT Strip.a uto Nitrite 9052677 Negativ complet Ur Ql 017 09 e [...] Total Cells Counted Bld (06-23-2016 11:27) Plat [id number] Normal complet morph 017 01 ed Bld 11:27 Normal result SCT WBC [id number] Normal complet morph 017 01 ed Bld 11:27 Normal result SCT RBC [id number] Normal complet morph 017 01 ed Bld [...] Ur Ql 11:48 E.U./dL Strip Nitrite 06-06- 0714420 Negativ complet Ur Ql 017 09 e ed Strip 11:48 Negativ e SCT Leukocy 3809327 Negativ complet te 017 09 e ed esteras 11:48 Negativ e Ur Ql e SCT Strip.a uto Prot Ur 9464250 Negativ complet Ql 017 09 e ed Strip 11:48 Negativ e SCT Hgb Ur 4010161 Negativ complet Ql 017 04 e ed Strip.a 11:48 Small uto SCT Bilirub 9268704 Negativ complet Ur Ql 017 09 e ed Strip 11:48 Negativ e SCT Ketones 23-2 9400486 Negativ complet Ur Ql 017 09 e ed Strip 11:48 Negativ e SCT Glucose 23-2 7542803 Negativ complet Ur 017 09 e ed Strip-m 11:48 Negativ Cnc e SCT Sp Gr 06-06-2 1.025 1.005-1 complet Ur 017 .030 ed Strip 11:48 pH Ur 23-2 6.0 5.0-8.0 complet Strip.a 017 ed uto 11:48 Clarity -23-2 0902730 Clear complet Ur 017 01 ed 11:48 Clear SCT Color -23-2 0387302 Yellow, complet Ur 017 09 Straw ed [...] ed Ur Ql 10:28 E.U./dL Strip Nitrite 8134722 Negativ complet Ur Ql 017 09 e ed Strip 10:28 Negativ e SCT Leukocy 7566917 Negativ complet te 017 09 e ed esteras 10:28 Negativ e Ur Ql e SCT Strip.a uto Prot Ur 9275000 Negativ complet Ql 017 09 e ed Strip 10:28 Negativ e SCT Hgb Ur 4202577 Negativ complet Ql 017 09 e ed Strip.a 10:28 Negativ uto e SCT Bilirub 4413812 Negativ complet Ur Ql 017 09 e ed Strip 10:28 Negativ e SCT Ketones 3117409 Negativ complet Ur Ql 017 09 e ed Strip 10:28 Negativ e SCT Glucose 8412151 Negativ complet Ur 017 09 e ed Strip-m 10:28 Negativ Cnc e SCT Sp Gr 03-02-2 1.010 1.005-1 complet Ur 017 .030 ed Strip 10:28 pH Ur 6.0 5.0-8.0 complet Strip.a 017 ed uto 10:28 Clarity 2178571 Clear complet Ur 017 01 ed 10:28 Clear SCT Color 2396420 Yellow, complet Ur 017 09 Straw ed [...] ed Ur Ql 09:41 E.U./dL Strip Nitrite 8487178 Negativ complet Ur Ql 017 09 e ed Strip 09:41 Negativ e SCT Leukocy 5949726 Negativ complet te 017 09 e ed esteras 09:41 Negativ e Ur Ql e SCT Strip.a uto Prot Ur 6728282 Negativ complet Ql 017 09 e ed Strip 09:41 Negativ e SCT Hgb Ur 5623298 Negativ complet Ql 017 09 e ed Strip.a 09:41 Negativ uto e SCT Bilirub 8979642 Negativ complet Ur Ql 017 09 e ed Strip 09:41 Negativ e SCT Ketones 4667757 Negativ complet Ur Ql 017 09 e ed Strip 09:41 Negativ e SCT Glucose 6824363 Negativ complet Ur 017 09 e ed Strip-m 09:41 Negativ Cnc e SCT Sp Gr 1.010 1.005-1 complet Ur 017 .030 ed Strip 09:41 pH Ur 5.0 5.0-8.0 complet Strip.a 017 ed uto 09:41 Clarity 8239242 Clear complet Ur 017 01 ed 09:41 Clear SCT Color 5407927 Yellow, complet Ur 017 09 Straw ed [...] Code Location Performer Type Date Emergency RAEGAN Dilalrd (ER) 3 09:57 3 11:24 [facility] Joo Babcock
--- OUTSIDE RECORDS SUMMARY | 2016-07-28 15:43 | External Medical Summary Rpt ---
Demographics Preferred Language Jordanian Marital Status Unknown Mandaeism Affiliation Unknown Race Unknown Ethnic Group Unknown Author Author , Organization [employer] Address Unknown Phone Unavailable Purpose Continuity of Care Document - through 2016 Immunization No patient found.
--- OUTSIDE RECORDS SUMMARY | 2016-07-28 15:43 | External Medical Summary Rpt ---
Author Author [employer]APH[employer] Yeboah, DAPHNEY Yeboah Organization [employer] Address Unknown Phone Unavailable
--- OUTSIDE RECORDS SUMMARY | 2016-07-28 15:43 | External Medical Summary Rpt ---
Demographics Preferred Language [place]guill[place] Marital Status Unknown Nondenominational Affiliation Unknown Race Unknown Ethnic Group Unknown Author Author , Organization [employer] Address Unknown Phone Unavailable Purpose Continuity of Care Document - through 2016 Immunization No patient found.
--- NOTE | 2016-07-28 15:47 | Emergency Room Report ---
History of Present Illness Time Seen by MD Rodriguez Presenting Problem in Triage Pt arrived:Walked Presenting Problem:PT REPORTS WAKING UP WITH MORNING WITH INCREASED SOA AND WHEEZING. PT REPORTS HAS STAGE 4 LUNG CA. 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 N Clinical Suspician of Infection? N Mental Status: 1 - Regular (Normal Baseline) Sepsis Risk:Possible Sepsis Risk Have you (or family members/close friends) recently traveled outside the [place]? N If Yes, where/when: Have you had exposure to infectious disease within the past month? N TB? Other? Specify: Comment The patient complains of shortness of breath. She feels that she has a recurrent pleural effusion due to lung cancer. She says that she has non-small cell lung cancer diagnosed in late January or early February 2016 when she presented with a pleural effusion. She says that she had been asymptomatic except for back pain. She is getting chemotherapy and has a Port-A-Cath. She says she has had 3 prior thoracenteses. The last was early July. She says that she is getting more short of breath and typical and feels like there is fluid in her LEFT lung. She says that she tried to call all of her specialists, but did not get a return call and therefore comes here to get an x-ray done to see if she is reaccumulating fluid. ALLERGIES Coded Allergies: No Known Allergies (02/15/16) Home Medications Active Scripts LISINOPRIL (Lisinopril) 10 MG PO DAILY #30 TAB Prov: 02/15/16 HYDROCODONE/ACETAMINOPHEN ([place] 5-325 Tablet) 1 TAB PO Q6HP PRN pain #12 TAB Prov: 02/15/16 History Medical History General CAD? No Angina: No ME: No Hypertension? Yes Hyperlipidemia? No CHF? No DVT? No PE? No COPD? No Asthma? No Anemia? No GERD? No Gastric ulcers? No GI Bleed? No Hernia? No Thyroid Problems? Yes Hypothyroidism? Yes CVA? No Seizures? No Diabetes? No Renal Insuffiency? No End Stage Renal Disease? No UTI? No Stones? Yes BPH? No GB Disease: No Nephritic Syndrome? No Asplenia? No Hepatitis? No Sickle Cell Disease? No Arthritis? No Migraines? No Cataracts? No Glaucoma? No MRSA? No HIV? No TB? No Anxiety? No Depression? No Cancer? Yes Site: STAGE 4 LUNG CA More? 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 LMP N/A Family History Family Hx Diabetes No CAD No Hypertension No Hyperlipidemia No Cancer No TB No Social History Smoking Hx Smoker: Current Some Day Smoker Tobacco: Yes Type Cigarettes Packs/day < 1 Pack Alcohol Alcohol: No Review of Systems All Other Systems Reviewed and Negative Constitutional malaise, weakness Respiratory shortness of breath Cardiovascular chest pain (L side) Gastrointestinal nausea (due to chemotherapy) Physical Exam Vital Signs Vital Signs Date Time Temp Pulse Resp B/P Pulse O2 O2 Flow FiO2 Ox Delivery Rate 07/28 1645 97.8 78 22 97/58 94 07/28 1504 92 22 121/90 96 General Appearance pale, cushingoid fascies Eye Exam - bilateral eye normal exam, bilateral eye PERRL, bilateral eye EOMI Ear, Nose, Throat hearing grossly normal, normal ENT inspection Neck normal inspection, non-tender, supple, full range of motion Respiratory Status Yes: trachea midline, chest symmetrical. No: respiratory distress. Lung Sounds bilateral: lungs clear. right: decreased breath sounds (base). 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 No Results/Orders Orders Procedure Date/time Status CHEST(2 VIEWS-NOT PORTABLE) 07/28 1544 Active XRAY/CT/US XRAY/CT/US XRAY chest Comment X-ray interpreted by radiologist:Large LEFT pleural effusion, increased from 02/15/16. Questionable LEFT basilar infiltrate. Progress - Case discussed with Dr. Balbuena, on-call for Dr. Fermin. She recommends that the patient call Dr. Fermin's nurse tomorrow at 8 AM and they will will be able to get her in for an outpatient thoracentesis quickly, possibly tomorrow. If she worsens go to [facility] emergency department. The patient is agreeable with this plan. Departure Departure Disposition DC Home or Self Care(routine) Clinical Impression Primary Impression: Recurrent left pleural effusion Condition STABLE Referrals Joaquín DESIR,Beto Pan (Family) Additional Instructions Call Dr. Fermin's nurse tomorrow at 8 AM. Arrange thoracentesis to be done as soon as possible, hopefully tomorrow. If you worsen before then and feel you cannot wait, go to [facility] emergency department. ED Critical Care Critical Care No at [phone]
--- NOTE | 2016-07-28 15:47 | Emergency Room Report ---
History of Present Illness Time Seen by MD Rodriguez Presenting Problem in Triage Pt arrived:Walked Presenting Problem:PT REPORTS WAKING UP WITH MORNING WITH INCREASED SOA AND WHEEZING. PT REPORTS HAS STAGE 4 LUNG CA. 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 N Clinical Suspician of Infection? N Mental Status: 1 - Regular (Normal Baseline) Sepsis Risk:Possible Sepsis Risk Have you (or family members/close friends) recently traveled outside the [place]? N If Yes, where/when: Have you had exposure to infectious disease within the past month? N TB? Other? Specify: Comment The patient complains of shortness of breath. She feels that she has a recurrent pleural effusion due to lung cancer. She says that she has non-small cell lung cancer diagnosed in late January or early February 2016 when she presented with a pleural effusion. She says that she had been asymptomatic except for back pain. She is getting chemotherapy and has a Port-A-Cath. She says she has had 3 prior thoracenteses. The last was early July. She says that she is getting more short of breath and typical and feels like there is fluid in her LEFT lung. She says that she tried to call all of her specialists, but did not get a return call and therefore comes here to get an x-ray done to see if she is reaccumulating fluid. ALLERGIES Coded Allergies: No Known Allergies (02/15/16) Home Medications Active Scripts LISINOPRIL (Lisinopril) 10 MG PO DAILY #30 TAB Prov: 02/15/16 HYDROCODONE/ACETAMINOPHEN ([place] 5-325 Tablet) 1 TAB PO Q6HP PRN pain #12 TAB Prov: 02/15/16 History Medical History General CAD? No Angina: No SD: No Hypertension? Yes Hyperlipidemia? No CHF? No DVT? No PE? No COPD? No Asthma? No Anemia? No GERD? No Gastric ulcers? No GI Bleed? No Hernia? No Thyroid Problems? Yes Hypothyroidism? Yes CVA? No Seizures? No Diabetes? No Renal Insuffiency? No End Stage Renal Disease? No UTI? No Stones? Yes BPH? No GB Disease: No Nephritic Syndrome? No Asplenia? No Hepatitis? No Sickle Cell Disease? No Arthritis? No Migraines? No Cataracts? No Glaucoma? No MRSA? No HIV? No TB? No Anxiety? No Depression? No Cancer? Yes Site: STAGE 4 LUNG CA More? 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 N/A Family History Family Hx Diabetes No CAD No Hypertension No Hyperlipidemia No Cancer No TB No Social History Smoking Hx Smoker: Current Some Day Smoker Tobacco: Yes Type Cigarettes Packs/day < 1 Pack Alcohol Alcohol: No Review of Systems All Other Systems Reviewed and Negative Constitutional malaise, weakness Respiratory shortness of breath Cardiovascular chest pain (L side) Gastrointestinal nausea (due to chemotherapy) Physical Exam Vital Signs Vital Signs Date Time Temp Pulse Resp B/P Pulse O2 O2 Flow FiO2 Ox Delivery Rate 07/28 1645 97.8 78 22 97/58 94 07/28 1504 92 22 121/90 96 General Appearance pale, cushingoid fascies Eye Exam - bilateral eye normal exam, bilateral eye PERRL, bilateral eye EOMI Ear, Nose, Throat hearing grossly normal, normal ENT inspection Neck normal inspection, non-tender, supple, full range of motion Respiratory Status Yes: trachea midline, chest symmetrical. No: respiratory distress. Lung Sounds bilateral: lungs clear. right: decreased breath sounds (base). 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 No Results/Orders Orders Procedure Date/time Status CHEST(2 VIEWS-NOT PORTABLE) 07/28 1544 Active XRAY/CT/US XRAY/CT/US XRAY chest Comment X-ray interpreted by radiologist:Large LEFT pleural effusion, increased from 02/15/16. Questionable LEFT basilar infiltrate. Progress - Case discussed with Dr. Balbuena, on-call for Dr. Fermin. She recommends that the patient call Dr. Fermin's nurse tomorrow at 8 AM and they will will be able to get her in for an outpatient thoracentesis quickly, possibly tomorrow. If she worsens go to [facility] emergency department. The patient is agreeable with this plan. Departure Departure Disposition DC Home or Self Care(routine) Clinical Impression Primary Impression: Recurrent left pleural effusion Condition STABLE Referrals Joaquín DESIR,Beto Pan (Family) Additional Instructions Call Dr. Fermin's nurse tomorrow at 8 AM. Arrange thoracentesis to be done as soon as possible, hopefully tomorrow. If you worsen before then and feel you cannot wait, go to [facility] emergency department. ED Critical Care Critical Care No at [phone]
--- NOTE | 2016-07-28 16:12 | RADIOLOGY REPORT PS360 ---
CHEST(2 VIEWS-NOT PORTABLE) COMPARISON: PA and lateral chest 02/15/2016 HISTORY: Shortness of breath TECHNIQUE: PA and lateral chest FINDINGS: There is diffuse somewhat homogeneous opacification of the left lower hemithorax with meniscus sign laterally and the appearance is consistent with a large pleural effusion. There appears be air bronchograms seen in the retrocardiac location on the lateral projection suggesting underlying pneumonic infiltrate left lower lobe. There has been interval increase in size of the left pleural effusion when compared to the previous study from one February 2016. Right lung field remains fairly well-expanded and clear. There is a central line seen entering the left internal jugular vein with the tip just beyond the junction of the innominate vein with the SVC. Cardiac size is somewhat difficult to evaluate by suspect mild generalized cardio megaly. IMPRESSION: Large left pleural effusion showing interval increase in size from the previous study along with what is most likely an underlying pneumonia in the left lower lobe
[2016-07-28 17:03] VITALS: BP 97/58
== END 2016-07-28 17:04 | disposition home or self-care (01) ==
LOC: ER 14:59
DX: J90 Pleural effusion, not elsewhere classified (principal); Z72.0 Tobacco use; C34.90 Malignant neoplasm of unspecified part of unspecified bronchus or lung

== ENCOUNTER 2016-07-28 19:55 | Emergency (ER) | payer OTHER ==
[~2016-07-28] VITALS: Ht 182.9 cm; Wt 90.7 kg
--- NOTE | 2016-07-28 20:25 | Emergency Room Report ---
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 PT C/O OF RIGHT ARM PAIN, PT WITH DEFORMITY NOTED TO RIGHT ARM. EMS UNABLE TO PLACE SLING ON PT, BUT ARM IS ELEVATED ON PILLOW. PT RPTS SHE WAS TRYING TO CARRY A FLOWER BASKET AT HER HOUSE WHEN SHE TRIPPED AND FELL ONTO HER RIGHT ARM. PT DENIES HITTING HEAD OR LOC. PT DENIES ANY OTHER PAIN. Onset of symptoms date/time:07/28/16/ or onset unknown for:MEDICAL HX UNKNOWN Treatment Prior to Arrival: FENTANYL 50 MCG PER EMS SAFETY ADMIN ASSISTANT Provided by:DOORKEEPER Sepsis Risk Assessment: Temp: 98.1 B/P: 124/93 MAP: 103 Pulse: 90 Resp: 20 Recent fever? N Clinical Suspician of Infection? N Mental Status: 1 - Regular (Normal Baseline) Sepsis Risk:Possible Sepsis Risk Have you (or family members/close friends) recently traveled outside the [place]? N If Yes, where/when: Have you had exposure to infectious disease within the past month? N TB? Other? Specify: Source patient, RN notes reviewed, EMS, old records Exam Limitations no limitations Comment trip injury today with injury rt upper ext - pt with known lung cancer Cardiac Chest Pain Chest pain indicative of cardiac No Timing/Duration this evening Severity moderate ALLERGIES Coded Allergies: red dye (Mild, 07/28/16) Home Medications Active Scripts LISINOPRIL (Lisinopril) 10 MG PO DAILY #30 TAB Prov: 02/15/16 HYDROCODONE/ACETAMINOPHEN ([place] 5-325 Tablet) 1 TAB PO Q6HP PRN pain #12 TAB Prov: 02/15/16 History Medical History General CAD? No Angina: No [place]: No Hypertension? Yes Hyperlipidemia? No CHF? No DVT? No PE? No COPD? No Asthma? No Anemia? No GERD? No Gastric ulcers? No GI Bleed? No Hernia? No Thyroid Problems? Yes Hypothyroidism? Yes CVA? No Seizures? No Diabetes? No Renal Insuffiency? No End Stage Renal Disease? No UTI? No Stones? Yes BPH? No GB Disease: No Nephritic Syndrome? No Asplenia? No Hepatitis? No Sickle Cell Disease? No Arthritis? No Migraines? No Cataracts? No Glaucoma? No MRSA? No HIV? No TB? No Anxiety? No Depression? No Cancer? Yes Site: STAGE 4 LUNG CA More? 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 Respiratory denies cough, denies shortness of breath, denies wheezing Cardiovascular denies chest pain, denies syncope Gastrointestinal denies abdominal pain, denies diarrhea, denies vomiting Genitourinary denies: dysuria, frequency, hesitancy, hematuria. Musculoskeletal denies back pain, denies joint pain, denies joint swelling, denies neck pain Skin denies rash Psychiatric/Neurological denies headache, denies seizure Physical Exam Vital Signs Vital Signs Date Time Temp Pulse Resp B/P Pulse O2 O2 Flow FiO2 Ox Delivery Rate 07/28 2111 88 20 113/82 97 07/28 2042 20 07/28 2036 95 20 134/100 97 07/28 195 98.1 90 20 124/93 98 - WBC >12,000 or <4,000 or 10% bands? 2 or more SIRS Criteria Met? B/P:113/82 MAP:103 Creatinine >2.0? UA output<0.5ml/kg/hr for 2 hrs? Platelet count >100,000? Lactate >2.0mmol/1? INR >1.2 or PTT > than 60 sec? Evidence of Organ Dysfunction? Provider documented clinical suspician of infection? N Sepsis Criteria Count: 2 Sepsis Risk: Possible Sepsis Risk General Appearance no apparent distress Eye Exam - bilateral eye PERRL, bilateral eye EOMI Ear, Nose, Throat normal ENT inspection Neck supple Respiratory Status No: respiratory distress. 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 No Results/Orders Current Medication Orders Sig/Nate Start time Last Medication Dose Route Stop Time Status Admin Morphine Sulfate 4 MG ONCE ONE 07/28 2044 DC 07/28 IV 07/28 Ondansetron HCl 4 MG ONCE ONE 07/28 2044 DC 07/28 IV 07/28 Morphine Sulfate 0 .STK-MED ONE 07/29 2039 DC .ROUTE Ondansetron HCl 0 .STK-MED ONE 07/29 2039 DC .ROUTE Orders Procedure Date/time Status STABILIZE JOINT 07/28 2305 Active HUMERUS-RT 07/28 2005 Active XRAY/CT/US XRAY/CT/US XRAY upper arm XR interpretation by reviewed by me Xray Results abnormal (fx seen/possible path) Procedures Orthopedic/Inj/Splint Ortho Proc/Injections/Splints Risks/benefits discussed with pt/guardian? Yes IV conscious sedation No Procedural sedation ms Location humerus Post reduction xrays completed and anatomic No Hand-Made Type orthoglass Splint long arm Pre-Proc Neuro Vasc Exam normal Post-Proc Neuro Vasc Exam unchanged from pre-exam Complications none Departure Departure Time of Disposition 2131 Disposition DC Home or Self Care(routine) Clinical Impression Primary Impression: Humerus shaft fracture Qualifiers: Encounter type: initial encounter Fracture type: closed Fracture morphology: oblique Fracture alignment: displaced Laterality: right Qualified Code: S42.331A - Displaced oblique fracture of shaft of humerus, right arm, initial encounter for closed fracture Condition STABLE Referrals Beto Yanes MD (Family) Patient Instructions DI for Humeral Fracture Additional Instructions wear splint and sling and call ortho in am Discharge Counseling Counseled pt/family regarding diagnosis, test results, medications/RX, follow up needs ED Critical Care Critical Care No at 2135
--- NOTE | 2016-07-28 20:25 | Emergency Room Report ---
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 PT C/O OF RIGHT ARM PAIN, PT WITH DEFORMITY NOTED TO RIGHT ARM. EMS UNABLE TO PLACE SLING ON PT, BUT ARM IS ELEVATED ON PILLOW. PT RPTS SHE WAS TRYING TO CARRY A FLOWER BASKET AT HER HOUSE WHEN SHE TRIPPED AND FELL ONTO HER RIGHT ARM. PT DENIES HITTING HEAD OR LOC. PT DENIES ANY OTHER PAIN. 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 N Clinical Suspician of Infection? N Mental Status: 1 - Regular (Normal Baseline) Sepsis Risk:Possible Sepsis Risk Have you (or family members/close friends) recently traveled outside the [place]? N If Yes, where/when: Have you had exposure to infectious disease within the past month? N TB? Other? Specify: Source patient, RN notes reviewed, EMS, old records Exam Limitations no limitations Comment trip injury today with injury rt upper ext - pt with known lung cancer Cardiac Chest Pain Chest pain indicative of cardiac No Timing/Duration this evening Severity moderate ALLERGIES Coded Allergies: red dye (Mild, 07/28/16) Home Medications Active Scripts LISINOPRIL (Lisinopril) 10 MG PO DAILY #30 TAB Prov: 02/15/16 HYDROCODONE/ACETAMINOPHEN ([place] 5-325 Tablet) 1 TAB PO Q6HP PRN pain #12 TAB Prov: 02/15/16 History Medical History General CAD? No Angina: No GA: No Hypertension? Yes Hyperlipidemia? No CHF? No DVT? No PE? No COPD? No Asthma? No Anemia? No GERD? No Gastric ulcers? No GI Bleed? No Hernia? No Thyroid Problems? Yes Hypothyroidism? Yes CVA? No Seizures? No Diabetes? No Renal Insuffiency? No End Stage Renal Disease? No UTI? No Stones? Yes BPH? No GB Disease: No Nephritic Syndrome? No Asplenia? No Hepatitis? No Sickle Cell Disease? No Arthritis? No Migraines? No Cataracts? No Glaucoma? No MRSA? No HIV? No TB? No Anxiety? No Depression? No Cancer? Yes Site: STAGE 4 LUNG CA More? 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 Respiratory denies cough, denies shortness of breath, denies wheezing Cardiovascular denies chest pain, denies syncope Gastrointestinal denies abdominal pain, denies diarrhea, denies vomiting Genitourinary denies: dysuria, frequency, hesitancy, hematuria. Musculoskeletal denies back pain, denies joint pain, denies joint swelling, denies neck pain Skin denies rash Psychiatric/Neurological denies headache, denies seizure Physical Exam Vital Signs Vital Signs Date Time Temp Pulse Resp B/P Pulse O2 O2 Flow FiO2 Ox Delivery Rate 07/28 2111 88 20 113/82 97 07/28 2042 20 07/28 2036 95 20 134/100 97 07/28 195 98.1 90 20 124/93 98 - WBC >12,000 or <4,000 or 10% bands? 2 or more SIRS Criteria Met? B/P:113/82 MAP:103 Creatinine >2.0? UA output<0.5ml/kg/hr for 2 hrs? Platelet count >100,000? Lactate >2.0mmol/1? INR >1.2 or PTT > than 60 sec? Evidence of Organ Dysfunction? Provider documented clinical suspician of infection? N Sepsis Criteria Count: 2 Sepsis Risk: Possible Sepsis Risk General Appearance no apparent distress Eye Exam - bilateral eye PERRL, bilateral eye EOMI Ear, Nose, Throat normal ENT inspection Neck supple Respiratory Status No: respiratory distress. 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 No Results/Orders Current Medication Orders Sig/Nate Start time Last Medication Dose Route Stop Time Status Admin Morphine Sulfate 4 MG ONCE ONE 07/28 2044 DC 07/28 IV 07/28 Ondansetron HCl 4 MG ONCE ONE 07/28 2044 DC 07/28 IV 07/28 Morphine Sulfate 0 .STK-MED ONE 07/29 2039 DC .ROUTE Ondansetron HCl 0 .STK-MED ONE 07/29 2039 DC .ROUTE Orders Procedure Date/time Status STABILIZE JOINT 07/28 2305 Active HUMERUS-RT 07/28 2005 Active XRAY/CT/US XRAY/CT/US XRAY upper arm XR interpretation by reviewed by me Xray Results abnormal (fx seen/possible path) Procedures Orthopedic/Inj/Splint Ortho Proc/Injections/Splints Risks/benefits discussed with pt/guardian? Yes IV conscious sedation No Procedural sedation ms Location humerus Post reduction xrays completed and anatomic No Hand-Made Type orthoglass Splint long arm Pre-Proc Neuro Vasc Exam normal Post-Proc Neuro Vasc Exam unchanged from pre-exam Complications none Departure Departure Time of Disposition 2131 Disposition DC Home or Self Care(routine) Clinical Impression Primary Impression: Humerus shaft fracture Qualifiers: Encounter type: initial encounter Fracture type: closed Fracture morphology: oblique Fracture alignment: displaced Laterality: right Qualified Code: S42.331A - Displaced oblique fracture of shaft of humerus, right arm, initial encounter for closed fracture Condition STABLE Referrals Beto Yanes MD (Family) Patient Instructions DI for Humeral Fracture Additional Instructions wear splint and sling and call ortho in am Discharge Counseling Counseled pt/family regarding diagnosis, test results, medications/RX, follow up needs ED Critical Care Critical Care No at 2135
--- OUTSIDE RECORDS SUMMARY | 2016-07-28 20:36 | External Medical Summary Rpt ---
Author Author , Organization [employer] Address Unknown Phone Unavailable Care Team Providers Care Director Of Health Care Marketing Name Role Phone Joo Dillard Unavailable Unavailable AURA DESIR, Joo Dillard III, MD Purpose Continuity of Care Document - 09-11-2012 through 2016 Problems Code Diagnosis DOS Provider Status 305.1 305.1 09-11-2012 [place] TOBACCO USE [facility] 401.9 401.9 09-11-2012 [place] HYPERTENSIO [place] 847.0 847.0 09-11-2012 [facility] NECK [facility] 847.1 847.1 09-11-2012 [facility] THORACIC [facility] REGION 847.2 847.2 09-11-2012 [facility] LUMBAR [facility] REGION E813.0 E813.0 09-11-2012 [facility] E849.5 E849.5 09-11-2012 [facility] WAY C34.92 Malignant neoplasm of unspecified part of left bronchus or lung J90 PLEURAL EFFUSION, NOT ELSEWHERE CLASSIFIED Z95.828 Presence of other vascular implants and [...] UA Dipstick Pnl Ur (07-18-2016 14:13) Color 1214254 Yellow, complet Ur 017 09 Straw ed 14:13 Yellow color SCT Clarity 7480311 Clear complet Ur 017 01 ed 14:13 [address] S[address] pH Ur 6.0 5.0-8.0 complet Strip.a 017 ed uto 14:13 Sp Gr 1.010 1.005-1 complet Ur 017 .030 ed Strip 14:13 Glucose 4707787 Negativ complet Ur 017 09 e ed Strip-m 14:13 Negativ Cnc e SCT Ketones 7391114 Negativ complet Ur Ql 017 09 e ed Strip 14:13 Negativ e SCT Bilirub [id number] Negativ complet Ur Ql 017 09 e ed Strip 14:13 Negativ e SCT Hgb Ur [id number] Negativ complet Ql 017 09 e ed Strip.a 14:13 Negativ uto e SCT Prot Ur 7849564 Negativ complet Ql 017 09 e ed Strip 14:13 Negativ e SCT Leukocy 9527781 Negativ complet te 017 09 e ed esteras 14:13 Negativ e Ur Ql e SCT Strip.a uto Nitrite 8590574 Negativ complet Ur Ql 017 09 e ed Strip 14:13 Negativ e SCT Urobili 0.2 0.2 - complet nogen 017 E.U./dL 1.0 ed Ur Ql 14:13 E.U./dL Strip CBC W Diff pnl,unspecified Bld (07-18-2016 14:12) WBC -04-2 9.40 3.50-10 complet nRBC 017 10*3/mm .80 ed cor # 14:12 3 Bld RBC # 05-04-2 2.80 3.89-5. complet Bld 017 10*6/mm 14 ed Auto 14:12 3 Hgb -04-2 8.9 11.5-15 complet Bld-mCn 017 g/dL .5 ed c 14:12 Hct VFr 04-2 27.8 % 34.5-44 complet Bld 017 .0 ed Auto 14:12 RDW RBC -04-2 26.9 % 11.3-14 complet 017 .5 ed Auto-Rt 14:12 o MCV RBC -04-2 99.6 fL 80.0-99 complet Auto 017 .0 ed 14:12 MCH RBC 04-2 31.8 pg 27.0-31 complet Qn 017 .0 ed Auto 14:12 MCHC 04-2 31.9 32.0-36 complet RBC 017 g/dL .0 ed Auto-mC 14:12 nc PMV Bld 07-18-2 6.6 fL 6.0-12. complet Auto 017 0 ed 14:12 Platele 07-18-2 463 150-450 complet t # Bld 017 10*3/mm ed Auto 14:12 3 Neutrop -04-2 84.5 % 41.0-71 complet hils/le 017 .0 ed uk NFr 14:12 Bld Auto Lymphoc -04-2 10.2 % 24.0-44 complet ytes/le 017 .0 ed uk NFr 14:12 Bld Auto Monocyt -04-2 5.3 % 0.0-12. complet es/leuk 017 0 ed NFr 14:12 Bld Auto Neutrop -04-2 7.90 1.50-8. complet hils # 017 10*3/mm 30 ed Bld 14:12 3 Auto Lymphoc 05-04-2 1.00 0.60-4. complet ytes # 017 10*3/mm 80 ed Bld 14:12 3 Auto Monocyt -04-2 0.50 0.00-1. complet es # 017 10*3/mm 00 ed Bld 14:12 3 Auto Comp Metab 1998 Pnl SerPl (07-18-2016 14:12) Glucose 07-18- 122 70-100 complet 017 mg/dL ed Bld-mCn 14:12 c BUN 07-18- 20 9-23 complet Bld-mCn 017 mg/dL ed [...] g/dL 80 ed SerPl-m 14:12 Cnc ALT 07-18- 43 U/L 7-40 complet SerPl w 017 ed 14:12 P-5'-P- cCnc AST 26 U/L 0-33 complet SerPl-c 017 ed Cnc 14:12 ALP 104 U/L 25-100 complet SerPl-c 017 ed Cnc 14:12 Bilirub 0.2 0.3-1.2 complet 017 mg/dL ed SerPl-m 14:12 Cnc GFR/BSA 07-18- 58 >60 complet .pred 017 mL/min/ ed SerPl 14:12 1.73 MDRD-Ar VRat Globuli 2.6 complet n Ur 017 gm/dL ed Elph-mC 14:12 nc Albumin 1.6 1.5-2.5 complet /Glob 017 g/dL ed SerPl 14:12 BUN/Cre 05-04-2 20.0 7.0-25. complet at 017 0 ed SerPl 14:12 Anion 07-18-2 9.0 3.0-11. complet Gap3 017 mmol/L 0 ed SerPl-s 14:12 Cnc Creat Bld-mCnc (06-27-2016 13:33) Creat 06-27-2 0.90 0.60-1. complet BldA-mC 017 mg/dL 30 ed nc 13:33 CBC W Diff pnl,unspecified Bld (06-27-2016 13:14) WBC 7.30 3.50-10 complet nRBC 017 10*3/mm .80 ed cor # 13:14 3 Bld RBC # 06-27- 3.09 3.89-5. complet Bld 017 10*6/mm 14 ed Auto 13:14 3 Hgb 9.7 11.5-15 complet Bld-mCn 017 g/dL .5 ed c 13:14 Hct VFr 29.4 % 34.5-44 complet Bld 017 .0 ed Auto 13:14 RDW RBC 24.0 % 11.3-14 complet 017 .5 ed Auto-Rt 13:14 o MCV RBC 95.4 fL 80.0-99 complet Auto 017 .0 ed 13:14 MCH RBC 31.3 pg 27.0-31 complet Qn 017 .0 ed Auto 13:14 MCHC 32.8 32.0-36 complet RBC 017 g/dL .0 ed Auto-mC 13:14 nc PMV Bld 6.4 fL 6.0-12. complet Auto 017 0 ed 13:14 Platele 555 150-450 complet t # Bld 017 10*3/mm ed Auto 13:14 3 Neutrop 72.5 % 41.0-71 complet hils/le 017 .0 ed uk NFr 13:14 Bld Auto Lymphoc 19.5 % 24.0-44 complet ytes/le 017 .0 ed uk NFr 13:14 Bld Auto Monocyt 8.0 % 0.0-12. complet es/leuk 017 0 ed NFr 13:14 Bld Auto Neutrop 2 5.30 1.50-8. complet hils # 017 10*3/mm 30 ed Bld 13:14 3 Auto Lymphoc 06-27-2 1.40 0.60-4. complet ytes # 017 10*3/mm 80 ed Bld 13:14 3 Auto Monocyt 2 0.60 0.00-1. complet es # 017 10*3/mm 00 ed Bld 13:14 3 Auto Comp Metab 1998 Pnl SerPl (06-27-2016 13:14) BUN 29 9-23 complet Bld-mCn 017 mg/dL ed c 13:14 Creat 0.90 0.60-1. complet Bld-mCn 017 mg/dL 30 ed c 13:14 Sodium 137 132-146 complet Bld-sCn 017 mmol/L ed c 13:14 Potassi 4.0 3.5-5.5 complet um 017 mmol/L ed Bld-sCn 13:14 c Chlorid 103 99-109 complet e 017 mmol/L ed SerPl-s 13:14 Cnc CO2 29.0 20.0-31 complet SerPl-s 017 mmol/L .0 ed Cnc 13:14 Calcium 9.5 8.7-10. complet 017 mg/dL 4 ed XXX-sCn 13:14 c Prot 6.9 5.7-8.2 complet SerPl-m 017 g/dL ed Cnc 13:14 Albumin 4.20 3.20-4. complet 017 g/dL 80 ed SerPl-m 13:14 Cnc ALT 50 U/L 7-40 complet SerPl w 017 ed 13:14 P-5'-P- cCnc AST 31 U/L 0-33 complet SerPl-c 017 ed Cnc 13:14 ALP 84 U/L 25-100 complet SerPl-c 017 ed Cnc 13:14 Bilirub 06-27-2 0.3 0.3-1.2 complet 017 mg/dL ed SerPl-m 13:14 Cnc GFR/BSA 65 >60 complet .pred 017 mL/min/ ed SerPl 13:14 1.73 MDRD-Ar VRat Globuli 2.7 complet n Ur 017 gm/dL ed Elph-mC 13:14 nc Albumin 1.6 1.5-2.5 complet /Glob 017 g/dL ed SerPl 13:14 BUN/Cre 32.2 7.0-25. complet at 017 0 ed SerPl 13:14 Anion 5.0 3.0-11. complet Gap3 017 mmol/L 0 ed SerPl-s 13:14 Cnc Glucose 125 70-100 complet 017 mg/dL ed Bld-mCn 13:14 c CBC W Diff pnl,unspecified Bld (06-23-2016 11:27) MCH RBC 31.4 pg 27.0-31 complet Qn 017 .0 ed Auto 11:27 MCHC 31.9 32.0-36 complet RBC 017 g/dL .0 ed Auto-mC 11:27 nc RDW RBC 20.4 % 11.3-14 complet 017 .5 ed Auto-Rt 11:27 o RDW RBC 65.2 fl 37.0-54 complet Auto 017 .0 ed 11:27 PMV Bld 9.2 fL 6.0-12. complet Auto 017 0 ed 11:27 Platele 387 150-450 complet t # Bld 017 10*3/mm ed Auto 11:27 3 Neutrop 47.1 % 41.0-71 complet hils/le 017 .0 ed uk NFr 11:27 Bld Auto Lymphoc 40.8 % 24.0-44 complet ytes/le 017 .0 ed uk NFr 11:27 Bld Auto Monocyt 10.7 % 0.0-12. complet es/leuk 017 0 ed NFr 11:27 Bld Auto Eosinop 0.3 % 0.0-3.0 complet hil/patricia 017 ed k NFr 11:27 Bld Auto Basophi 04-09-2 0.2 % 0.0-1.0 complet ls/leuk 017 ed NFr 11:27 Bld Auto Imm 09-2 0.9 % 0.0-0.6 complet Granulo 017 ed cytes/l 11:27 euk NFr Bld Neutrop 06-23-2 4.51 1.50-8. complet hils # 017 10*3/mm 30 ed Bld 11:27 3 Auto Lymphoc 06-23-2 3.91 0.60-4. complet ytes # 017 10*3/mm 80 ed Bld 11:27 3 Auto Monocyt 06-23-2 1.03 0.00-1. complet es # 017 10*3/mm 00 ed Bld 11:27 3 Auto Eosinop 06-23-2 0.03 0.10-0. complet hil # 017 10*3/mm 30 ed Bld 11:27 3 Auto Basophi 06-23-2 0.02 0.00-0. complet ls # 017 10*3/mm 20 ed Bld 11:27 3 Auto Imm 06-23-2 0.09 0.00-0. complet Granulo 017 10*3/mm 03 ed cytes # 11:27 3 Bld WBC 06-23-2 9.59 3.50-10 complet nRBC 017 10*3/mm .80 ed cor # 11:27 3 Bld RBC # 09-2 3.34 3.89-5. complet Bld 017 10*6/mm 14 ed Auto 11:27 3 Hgb 06-23- 10.5 11.5-15 complet Bld-mCn 017 g/dL .5 ed c 11:27 Hct VFr 32.9 % 34.5-44 complet Bld 017 .0 ed Auto 11:27 MCV RBC 98.5 fL 80.0-99 complet Auto 017 .0 ed 11:27 Total Cells Counted Bld (06-23-2016 11:27) RBC 06-23-2 [id number] Normal complet morph 017 01 ed Bld 11:27 Normal result SCT WBC [id number] Normal complet morph 017 01 ed Bld 11:27 Normal result SCT Plat [id number] Normal complet morph 017 01 ed Bld 11:27 Normal result SCT Comp Metab 1998 Pnl SerPl (06-23-2016 11:27) Glucose 84 70-100 complet 017 mg/dL ed Bld-mCn 11:27 c BUN 30 9-23 complet Bld-mCn 017 mg/dL ed c 11:27 Creat 1.00 0.60-1. complet Bld-mCn 017 mg/dL 30 ed c 11:27 Sodium 141 132-146 complet Bld-sCn 017 mmol/L ed c 11:27 Potassi 4.5 3.5-5.5 complet um 017 mmol/L ed Bld-sCn 11:27 c Chlorid 109 99-109 complet e 017 mmol/L ed SerPl-s 11:27 Cnc CO2 25.0 20.0-31 complet SerPl-s 017 mmol/L .0 ed Cnc 11:27 Calcium 9.6 8.7-10. complet 017 mg/dL 4 ed XXX-sCn 11:27 c Prot 6.9 5.7-8.2 complet SerPl-m 017 g/dL ed Cnc 11:27 Albumin 4.30 3.20-4. complet 017 g/dL 80 ed SerPl-m 11:27 Cnc ALT 56 U/L 7-40 complet SerPl w 017 ed 11:27 P-5'-P- cCnc AST 29 U/L 0-33 complet SerPl-c 017 ed Cnc 11:27 ALP 107 U/L 25-100 complet SerPl-c 017 ed Cnc 11:27 Bilirub 0.2 0.3-1.2 complet 017 mg/dL ed SerPl-m 11:27 Cnc GFR/BSA 58 >60 complet .pred 017 mL/min/ ed SerPl 11:27 1.73 MDRD-Ar VRat Globuli 2.6 complet n Ur 017 gm/dL ed Elph-mC 11:27 nc Albumin 1.7 1.5-2.5 complet /Glob 017 g/dL ed SerPl 11:27 BUN/Cre 30.0 7.0-25. complet at 017 0 ed SerPl 11:27 Anion 7.0 3.0-11. complet Gap3 017 mmol/L 0 ed SerPl-s 11:27 Cnc Platelet # BldCo (06-11-2016 07:48) Platele 378 150-450 complet t # Bld 017 10*3/mm ed Auto 07:48 3 PT PPP (06-11-2016 07:48) PT PPP 10.0 9.6-11. complet 017 Seconds 5 ed 07:48 INR PPP 0.92 complet 017 ed 07:48 aPTT PPP (06-11-2016 07:48) aPTT 24.8 24.0-31 complet PPP 017 seconds .0 ed 07:48 Creat Bld-mCnc (06-06-2016 12:47) Creat 1.10 0.60-1. complet BldA-mC 017 mg/dL 30 ed nc 12:47 UA Dipstick Pnl Ur (06-06-2016 11:48) Color 1226153 Yellow, complet Ur 017 09 Straw ed 11:48 Yellow color SCT Clarity [id number] Clear complet Ur 017 01 ed 11:48 Clear SCT pH Ur 6.0 5.0-8.0 complet Strip.a 017 ed uto 11:48 Sp Gr 1.025 1.005-1 complet Ur 017 .030 ed Strip 11:48 Glucose 1125728 Negativ complet Ur 017 09 e ed Strip-m 11:48 Negativ Cnc e SCT Ketones 1632923 Negativ complet Ur Ql 017 09 e ed Strip 11:48 Negativ e SCT Bilirub [id number] Negativ complet Ur Ql 017 09 e ed Strip 11:48 Negativ e SCT Hgb Ur 9063042 Negativ complet Ql 017 04 e ed Strip.a 11:48 Small uto SCT Prot Ur 5361152 Negativ complet Ql 017 09 e ed Strip 11:48 Negativ e SCT Leukocy 06-06-2 0479093 Negativ complet te 017 09 e ed esteras 11:48 Negativ e Ur Ql e SCT Strip.a uto Nitrite 06-06-2 6031402 Negativ complet Ur Ql 017 09 e ed Strip 11:48 Negativ e SCT Urobili 06-06-2 0.2 0.2 - complet nogen 017 E.U./dL 1.0 ed Ur Ql 11:48 E.U./dL Strip CBC W Diff pnl,unspecified Bld (06-06-2016 11:48) WBC 06-06-2 7.90 3.50-10 complet nRBC 017 10*3/mm .80 ed cor # 11:48 3 Bld RBC # 23-2 3.54 3.89-5. complet Bld 017 10*6/mm 14 ed Auto 11:48 3 Hgb 06-06-2 10.3 11.5-15 complet Bld-mCn 017 g/dL .5 ed c 11:48 Hct VFr 06-06-2 33.0 % 34.5-44 complet Bld 017 .0 ed Auto 11:48 RDW RBC -23-2 19.3 % 11.3-14 complet 017 .5 ed Auto-Rt 11:48 o MCV RBC 06-06-2 93.2 fL 80.0-99 complet Auto 017 .0 ed 11:48 MCH RBC 23-2 29.1 pg 27.0-31 complet Qn 017 .0 ed Auto 11:48 MCHC 23-2 31.3 32.0-36 complet RBC 017 g/dL .0 ed Auto-mC 11:48 nc PMV Bld 23-2 6.4 fL 6.0-12. complet Auto 017 0 ed 11:48 Platele 06-06-2 634 150-450 complet t # Bld 017 10*3/mm ed Auto 11:48 3 Neutrop -23-2 69.4 % 41.0-71 complet hils 017 .0 ed NFr Bld 11:48 Auto Lymphoc -23-2 21.2 % 24.0-44 complet ytes 017 .0 ed NFr Bld 11:48 Auto Monocyt 23-2 9.4 % 0.0-12. complet es NFr 017 0 ed Bld 11:48 Auto Neutrop 23-2 5.50 1.50-8. complet hils # 017 10*3/mm 30 ed Bld 11:48 3 Auto Lymphoc -23-2 1.70 0.60-4. complet ytes # 017 10*3/mm 80 ed Bld 11:48 3 Auto Monocyt 23-2 0.70 0.00-1. complet es # 017 10*3/mm 00 ed Bld 11:48 3 Auto Comp Metab 1998 Pnl SerPl (06-06-2016 11:48) Glucose -23-2 95 70-100 complet 017 mg/dL ed Bld-mCn 11:48 c BUN 23-2 22 9-23 complet Bld-mCn 017 mg/dL ed c 11:48 Creat 23-2 1.00 0.60-1. complet Bld-mCn 017 mg/dL 30 ed c 11:48 Sodium 06-06-2 139 132-146 complet Bld-sCn 017 mmol/L ed c 11:48 Potassi 23-2 4.6 3.5-5.5 complet um 017 mmol/L ed Bld-sCn 11:48 c Chlorid 06-06-2 107 99-109 complet e 017 mmol/L ed SerPl-s 11:48 Cnc CO2 23-2 26.0 20.0-31 complet SerPl-s 017 mmol/L .0 ed Cnc 11:48 Calcium 23-2 9.7 8.7-10. complet 017 mg/dL 4 ed XXX-sCn 11:48 c Prot 23-2 7.3 5.7-8.2 complet SerPl-m 017 g/dL ed Cnc 11:48 Albumin 23-2 4.30 3.20-4. complet 017 g/dL 80 ed SerPl-m 11:48 Cnc ALT 06-06-2 42 U/L 7-40 complet SerPl w 017 ed 11:48 P-5'-P- cCnc AST 06-06-2 27 U/L 0-33 complet SerPl-c 017 ed Cnc 11:48 ALP 23-2 116 U/L 25-100 complet SerPl-c 017 ed Cnc 11:48 Bilirub 0.2 0.3-1.2 complet 017 mg/dL ed SerPl-m 11:48 Cnc GFR/BSA 58 >60 complet .pred 017 mL/min/ ed SerPl 11:48 1.73 MDRD-Ar VRat Globuli 3.0 complet n Ur 017 gm/dL ed Elph-mC 11:48 nc Albumin 1.4 1.5-2.5 complet /Glob 017 g/dL ed SerPl 11:48 BUN/Cre 22.0 7.0-25. complet at 017 0 ed SerPl 11:48 Anion 06-06- 6.0 3.0-11. complet Gap3 017 mmol/L 0 ed SerPl-s 11:48 Cnc Creat Bld-mCnc (05-16-2016 10:53) Creat 05-16-2 0.80 0.60-1. complet BldA-mC 017 mg/dL 30 ed nc 10:53 CBC W Diff pnl,unspecified Bld (05-16-2016 10:28) WBC 05-16-2 9.50 3.50-10 complet nRBC 017 10*3/mm .80 ed cor # 10:28 3 Bld RBC # 02-2 4.00 3.89-5. complet Bld 017 10*6/mm 14 ed Auto 10:28 3 Hgb 05-16-2 11.6 11.5-15 complet Bld-mCn 017 g/dL .5 ed c 10:28 Hct VFr 05-16-2 36.4 % 34.5-44 complet Bld 017 .0 ed Auto 10:28 RDW RBC -02-2 16.3 % 11.3-14 complet 017 .5 ed Auto-Rt 10:28 o MCV RBC -02-2 91.1 fL 80.0-99 complet Auto 017 .0 ed 10:28 MCH RBC -02-2 29.1 pg 27.0-31 complet Qn 017 .0 ed Auto 10:28 MCHC --2 31.9 32.0-36 complet RBC 017 g/dL .0 ed Auto-mC 10:28 nc PMV Bld 03-02-2 6.7 fL 6.0-12. complet Auto 017 0 ed 10:28 Platele 627 150-450 complet t # Bld 017 10*3/mm ed Auto 10:28 3 Neutrop 75.9 % 41.0-71 complet hils 017 .0 ed NFr Bld 10:28 Auto Lymphoc 18.3 % 24.0-44 complet ytes 017 .0 ed NFr Bld 10:28 Auto Monocyt 5.8 % 0.0-12. complet es NFr 017 0 ed Bld 10:28 Auto Neutrop 7.20 1.50-8. complet hils # 017 10*3/mm 30 ed Bld 10:28 3 Auto Lymphoc 1.70 0.60-4. complet ytes # 017 10*3/mm 80 ed Bld 10:28 3 Auto Monocyt 0.60 0.00-1. complet es # 017 10*3/mm 00 ed Bld 10:28 3 Auto UA Dipstick Pnl Ur (05-16-2016 10:28) Color 4091008 Yellow, complet Ur 017 09 Straw ed 10:28 Yellow color SCT Clarity [id number] Clear complet Ur 017 01 ed 10:28 Clear SCT pH Ur 6.0 5.0-8.0 complet Strip.a 017 ed uto 10:28 Sp Gr 1.010 1.005-1 complet Ur 017 .030 ed Strip 10:28 Glucose 8229128 Negativ complet Ur 017 09 e ed Strip-m 10:28 Negativ Cnc e SCT Ketones 3932075 Negativ complet Ur Ql 017 09 e ed Strip 10:28 Negativ e SCT Bilirub 1490271 Negativ complet Ur Ql 017 09 e ed Strip 10:28 Negativ e SCT Hgb Ur 6599754 Negativ complet Ql 017 09 e ed Strip.a 10:28 Negativ uto e SCT Prot Ur 5003081 Negativ complet Ql 017 09 e ed Strip 10:28 Negativ e SCT Leukocy 7124915 Negativ complet te 017 09 e ed esteras 10:28 Negativ e Ur Ql e SCT Strip.a uto Nitrite 5203796 Negativ complet Ur Ql 017 09 e ed Strip 10:28 Negativ e SCT Urobili 0.2 0.2 - complet nogen 017 E.U./dL 1.0 ed Ur Ql 10:28 E.U./dL Strip Comp Metab 1998 Pnl SerPl (05-16-2016 10:27) Glucose 02- 109 70-100 complet 017 mg/dL ed Bld-mCn 10:27 c BUN 18 9-23 complet Bld-mCn 017 mg/dL ed c 10:27 Creat 0.80 0.60-1. complet Bld-mCn 017 mg/dL 30 ed c 10:27 Sodium 136 132-146 complet Bld-sCn 017 mmol/L ed c 10:27 Potassi 4.0 3.5-5.5 complet um 017 mmol/L ed Bld-sCn 10:27 c Chlorid 104 99-109 complet e 017 mmol/L ed SerPl-s 10:27 Cnc CO2 26.0 20.0-31 complet SerPl-s 017 mmol/L .0 ed Cnc 10:27 Calcium 9.8 8.7-10. complet 017 mg/dL 4 ed XXX-sCn 10:27 c Prot 7.4 5.7-8.2 complet SerPl-m 017 g/dL ed Cnc 10:27 Albumin 05-16- 4.40 3.20-4. complet 017 g/dL 80 ed SerPl-m 10:27 Cnc ALT 2 35 U/L 7-40 complet SerPl w 017 ed 10:27 P-5'-P- cCnc AST 16 U/L 0-33 complet SerPl-c 017 ed Cnc 10:27 ALP 97 U/L 25-100 complet SerPl-c 017 ed Cnc 10:27 Bilirub 03-02-2 0.3 0.3-1.2 complet 017 mg/dL ed SerPl-m 10:27 Cnc GFR/BSA 74 >60 complet .pred 017 mL/min/ ed SerPl 10:27 1.73 MDRD-Ar VRat Globuli 3.0 complet n Ur 017 gm/dL ed Elph-mC 10:27 nc Albumin 1.5 1.5-2.5 complet /Glob 017 g/dL ed SerPl 10:27 BUN/Cre 22.5 7.0-25. complet at 017 0 ed SerPl 10:27 Anion 6.0 3.0-11. complet Gap3 017 mmol/L 0 ed SerPl-s 10:27 Cnc Creat Bld-mCnc (04-25-2016 09:57) Creat 0.90 0.60-1. complet BldA-mC 017 mg/dL 30 ed nc 09:57 CBC W Diff pnl,unspecified Bld (04-25-2016 09:41) WBC 9.20 3.50-10 complet nRBC 017 10*3/mm .80 ed cor # 09:41 3 Bld RBC # 2 4.20 3.89-5. complet Bld 017 10*6/mm 14 ed Auto 09:41 3 Hgb 12.6 11.5-15 complet Bld-mCn 017 g/dL .5 ed c 09:41 Hct VFr 38.4 % 34.5-44 complet Bld 017 .0 ed Auto 09:41 RDW RBC 13.7 % 11.3-14 complet 017 .5 ed Auto-Rt 09:41 o MCV RBC 91.3 fL 80.0-99 complet Auto 017 .0 ed 09:41 MCH RBC 29.9 pg 27.0-31 complet Qn 017 .0 ed Auto 09:41 MCHC 32.7 32.0-36 complet RBC 017 g/dL .0 ed Auto-mC 09:41 nc PMV Bld 7.4 fL 6.0-12. complet Auto 017 0 ed 09:41 Platele 02-09-2 466 150-450 complet t # Bld 017 10*3/mm ed Auto 09:41 3 Neutrop 84.3 % 41.0-71 complet hils 017 .0 ed NFr Bld 09:41 Auto Lymphoc 11.6 % 24.0-44 complet ytes 017 .0 ed NFr Bld 09:41 Auto Monocyt 4.1 % 0.0-12. complet es NFr 017 0 ed Bld 09:41 Auto Neutrop 7.80 1.50-8. complet hils # 017 10*3/mm 30 ed Bld 09:41 3 Auto Lymphoc 1.10 0.60-4. complet ytes # 017 10*3/mm 80 ed Bld 09:41 3 Auto Monocyt 0.40 0.00-1. complet es # 017 10*3/mm 00 ed Bld 09:41 3 Auto UA Dipstick Pnl Ur (04-25-2016 09:41) Color 7203691 Yellow, complet Ur 017 09 Straw ed 09:41 Yellow color SCT Clarity 0705715 Clear complet Ur 017 01 ed 09:41 Clear SCT pH Ur 5.0 5.0-8.0 complet Strip.a 017 ed uto 09:41 Sp Gr 1.010 1.005-1 complet Ur 017 .030 ed Strip 09:41 Glucose 6126480 Negativ complet Ur 017 09 e ed Strip-m 09:41 Negativ Cnc e SCT Ketones 3967523 Negativ complet Ur Ql 017 09 e ed Strip 09:41 Negativ e SCT Bilirub 5206600 Negativ complet Ur Ql 017 09 e ed Strip 09:41 Negativ e SCT Hgb Ur 0021553 Negativ complet Ql 017 09 e ed Strip.a 09:41 Negativ uto e SCT Prot Ur 6000854 Negativ complet Ql 017 09 e ed Strip 09:41 Negativ e SCT Leukocy 6794640 Negativ complet te 017 09 e ed esteras 09:41 Negativ e Ur Ql e SCT Strip.a uto Nitrite [id number] Negativ complet Ur Ql 017 09 e ed Strip 09:41 Negativ e SCT Urobili 0.2 0.2 - complet nogen 017 E.U./dL 1.0 ed Ur Ql 09:41 E.U./dL Strip Comp Metab 1998 Pnl SerPl (04-25-2016 09:41) Glucose 147 70-100 complet 017 mg/dL ed Bld-mCn 09:41 c BUN 22 9-23 complet Bld-mCn 017 mg/dL ed c 09:41 Creat 0.80 0.60-1. complet Bld-mCn 017 mg/dL 30 ed c 09:41 Sodium 134 132-146 complet Bld-sCn 017 mmol/L ed c 09:41 Potassi 4.2 3.5-5.5 complet um 017 mmol/L ed Bld-sCn 09:41 c Chlorid 101 99-109 complet e 017 mmol/L ed SerPl-s 09:41 Cnc CO2 22.0 20.0-31 complet SerPl-s 017 mmol/L .0 ed Cnc 09:41 Calcium 10.1 8.7-10. complet 017 mg/dL 4 ed XXX-sCn 09:41 c Prot 7.7 5.7-8.2 complet SerPl-m 017 g/dL ed Cnc 09:41 Albumin 4.80 3.20-4. complet 017 g/dL 80 ed SerPl-m 09:41 Cnc ALT 29 U/L 7-40 complet SerPl w 017 ed 09:41 P-5'-P- cCnc AST 20 U/L 0-33 complet SerPl-c 017 ed Cnc 09:41 ALP 100 U/L 25-100 complet SerPl-c 017 ed Cnc 09:41 Bilirub 0.3 0.3-1.2 complet 017 mg/dL ed SerPl-m 09:41 Cnc GFR/BSA 74 >60 complet .pred 017 mL/min/ ed SerPl 09:41 1.73 MDRD-Ar VRat Globuli 2.9 complet n Ur 017 gm/dL ed Elph-mC 09:41 nc Albumin 1.7 1.5-2.5 complet /Glob 017 g/dL ed SerPl 09:41 BUN/Cre 27.5 7.0-25. complet at 017 0 ed SerPl 09:41 Anion 11.0 3.0-11. complet Gap3 017 mmol/L 0 ed SerPl-s 09:41 Cnc Platelet # BldCo (04-18-2016 08:46) Platele 396 150-450 complet t # Bld 017 10*3/mm ed Auto 08:46 3 PT PPP (04-18-2016 08:46) PT PPP 10.6 9.6-11. complet 017 Seconds 5 ed 08:46 INR PPP 0.97 complet 017 ed 08:46 aPTT PPP (04-18-2016 08:46) aPTT 27.7 24.0-31 complet PPP 017 seconds .0 ed 08:46 Bas Metab 2000 Pnl SerPl (04-04-2016 10:54) Glucose 89 70-130 complet BldC 017 mg/dL ed Glucomt 10:54 r-mCnc CBC W Diff pnl,unspecified Bld (03-18-2016 12:37) RBC # 02-2 4.01 3.89-5. complet Bld 017 10*6/mm 14 ed Auto 12:37 3 WBC 6.94 3.50-10 complet nRBC 017 10*3/mm .80 ed cor # 12:37 3 Bld Hgb 12.3 11.5-15 complet Bld-mCn 017 g/dL .5 ed c 12:37 Hct VFr 37.3 % 34.5-44 complet Bld 017 .0 ed Auto 12:37 MCV RBC 03-18- 93.0 fL 80.0-99 complet Auto 017 .0 ed 12:37 MCH RBC 03-18- 30.7 pg 27.0-31 complet Qn 017 .0 ed Auto 12:37 MCHC 2 33.0 32.0-36 complet RBC 017 g/dL .0 ed Auto-mC 12:37 nc RDW RBC 03-18-2 14.4 % 11.3-14 complet 017 .5 ed Auto-Rt 12:37 o RDW RBC 49.2 fl 37.0-54 complet Auto 017 .0 ed 12:37 PMV Bld 2 9.2 fL 6.0-12. complet Auto 017 0 ed 12:37 Platele 399 150-450 complet t # Bld 017 10*3/mm ed Auto 12:37 3 Neutrop 2 61.9 % 41.0-71 complet hils 017 .0 ed NFr Bld 12:37 Auto Lymphoc 03-18-2 25.6 % 24.0-44 complet ytes 017 .0 ed NFr Bld 12:37 Auto Monocyt 03-18-2 11.2 % 0.0-12. complet es NFr 017 0 ed Bld 12:37 Auto Eosinop 03-18-2 1.0 % 0.0-3.0 complet hil NFr 017 ed Bld 12:37 Auto Basophi 03-18-2 0.3 % 0.0-1.0 complet ls NFr 017 ed Bld 12:37 Auto Imm 03-18-2 0.0 % 0.0-0.6 complet Granulo 017 ed cytes 12:37 NFr Bld Neutrop 03-18-2 4.29 1.50-8. complet hils # 017 10*3/mm 30 ed Bld 12:37 3 Auto Lymphoc 03-18-2 1.78 0.60-4. complet ytes # 017 10*3/mm 80 ed Bld 12:37 3 Auto Monocyt 02-2 0.78 0.00-1. complet es # 017 10*3/mm 00 ed Bld 12:37 3 Auto Eosinop 03-18-2 0.07 0.10-0. complet hil # 017 10*3/mm 30 ed Bld 12:37 3 Auto Basophi 03-18-2 0.02 0.00-0. complet ls # 017 10*3/mm 20 ed Bld 12:37 3 Auto Imm 0.00 0.00-0. complet Granulo 017 10*3/mm 03 ed cytes # 12:37 3 Bld Bas Metab 2000 Pnl SerPl (03-18-2016 12:37) Glucose 93 70-100 complet 017 mg/dL ed Bld-mCn 12:37 c BUN 17 9-23 complet Bld-mCn 017 mg/dL ed c 12:37 Creat 02 0.90 0.60-1. complet Bld-mCn 017 mg/dL 30 ed c 12:37 Sodium 141 132-146 complet Bld-sCn 017 mmol/L ed c 12:37 Potassi 4.6 3.5-5.5 complet um 017 mmol/L ed Bld-sCn 12:37 c Chlorid 104 99-109 complet e 017 mmol/L ed SerPl-s 12:37 Cnc CO2 28.0 20.0-31 complet SerPl-s 017 mmol/L .0 ed Cnc 12:37 Calcium 9.4 8.7-10. complet 017 mg/dL 4 ed XXX-sCn 12:37 c GFR/BSA 65 >60 complet .pred 017 mL/min/ ed SerPl 12:37 1.73 MDRD-Ar VRat BUN/Cre 18.9 7.0-25. complet at 017 0 ed SerPl 12:37 Anion 9.0 3.0-11. complet Gap3 017 mmol/L 0 ed SerPl-s 12:37 Cnc Fungus XXX PAS Stn (02-29-2016 08:20) Gie Stn No complet XXX 016 yeast ed 08:20 or hyphal element s seen Gie Stn No complet XXX 016 Pneumoc ed 08:20 ystis jirovec ci (former ly Pneumoc ystis carinii ) noted on smear. Bacteria XXX Resp Cult (02-28-2016 11:15) Gram No WBCs complet Stn XXX 016 or ed 11:15 organis ms seen Mycobacterium XXX Cult (02-28-2016 11:15) Chymotr No AFB complet yp Ab 016 isolate ed Ser-aCn 11:15 d at 6 c weeks Night No acid complet blue 016 fast ed stain 11:15 bacilli Tiss seen on concent rated smear Fungus XXX Cult (02-28-2016 11:15) Fungus No complet Wnd 016 fungus ed Cult 11:15 isolate d at 6 weeks Glucose Fld-mCnc (02-28-2016 10:36) Glucose 103 complet 016 mg/dL ed Fld-mCn 10:36 c LDH Fld L to P-cCnc (02-28-2016 10:36) LDH 107 U/L complet Fld-cCn 016 ed c 10:36 Bacteria Fld Cult (02-28-2016 10:36) Bacteri No active a Fld 016 growth Cult 10:36 at 6 days Gram No WBCs active Stn XXX 016 or 10:36 organis ms seen Fungus XXX PAS Stn (02-28-2016 10:36) Gie Stn No complet XXX 016 yeast ed 10:36 or hyphal element s seen Mycobacterium XXX Cult (02-28-2016 10:36) Chymotr No AFB complet yp Ab 016 isolate ed Ser-aCn 10:36 d at 6 c weeks Night No acid complet blue 016 fast ed stain 10:36 bacilli Tiss seen on concent rated smear Fungus XXX Cult (02-28-2016 10:36) Fungus No complet Wnd 016 fungus ed Cult 10:36 isolate d at 6 weeks Prot Fld-mCnc (02-28-2016 10:36) Prot 5.5 complet Fld-mCn 016 g/dL ed c 10:36 CBC (hemogram) Bld Auto (02-27-2016 14:16) WBC 8.16 3.50-10 complet nRBC 016 10*3/mm .80 ed cor # 14:16 3 Bld Hgb 13.9 11.5-15 complet Bld-mCn 016 g/dL .5 ed c 14:16 Hct VFr 41.2 % 34.5-44 complet Bld 016 .0 ed Auto 14:16 MCV RBC 02-26- 91.8 fL 80.0-99 complet Auto 016 .0 ed 14:16 MCH RBC 02-26- 31.0 pg 27.0-31 complet Qn 016 .0 ed Auto 14:16 MCHC 33.7 32.0-36 complet RBC 016 g/dL .0 ed Auto-mC 14:16 nc RDW RBC 02-26-2 14.0 % 11.3-14 complet 016 .5 ed Auto-Rt 14:16 o RDW RBC 02-26- 46.9 fl 37.0-54 complet Auto 016 .0 ed 14:16 PMV Bld 8.8 fL 6.0-12. complet Auto 016 0 ed 14:16 Platele 556 150-450 complet t # Bld 016 10*3/mm ed Auto 14:16 3 RBC # 02-26-2 4.49 3.89-5. complet Bld 016 10*6/mm 14 ed Auto 14:16 3 aPTT PPP (02-27-2016 14:16) aPTT 32.0 24.0-31 complet PPP 016 seconds .0 ed 14:16 Comp Metab 1998 Pnl SerPl (02-27-2016 14:16) Glucose 89 70-100 complet 016 mg/dL ed Bld-mCn 14:16 c BUN 17 9-23 complet Bld-mCn 016 mg/dL ed c 14:16 Creat 02-26- 1.10 0.60-1. complet Bld-mCn 016 mg/dL 30 ed c 14:16 Sodium 02-26- 137 132-146 complet Bld-sCn 016 mmol/L ed c 14:16 Potassi 02-26- 4.0 3.5-5.5 complet um 016 mmol/L ed Bld-sCn 14:16 c Chlorid 02-26- 101 99-109 complet e 016 mmol/L ed SerPl-s 14:16 Cnc CO2 02-26- 28.0 20.0-31 complet SerPl-s 016 mmol/L .0 ed Cnc 14:16 Calcium 02-26-2 10.1 8.7-10. complet 016 mg/dL 4 ed XXX-sCn 14:16 c Prot 02-26-2 8.0 5.7-8.2 complet SerPl-m 016 g/dL ed Cnc 14:16 Albumin 02-26-2 4.90 3.20-4. complet 016 g/dL 80 ed SerPl-m 14:16 Cnc ALT 02-26-2 60 U/L 7-40 complet SerPl w 016 ed 14:16 P-5'-P- cCnc AST 02-26- 56 U/L 0-33 complet SerPl-c 016 ed Cnc 14:16 ALP 121 U/L 25-100 complet SerPl-c 016 ed Cnc 14:16 Bilirub 02-26-2 0.3 0.3-1.2 complet 016 mg/dL ed SerPl-m 14:16 Cnc GFR/BSA 52 >60 complet .pred 016 mL/min/ ed SerPl 14:16 1.73 MDRD-Ar VRat Globuli 3.1 complet n Ur 016 gm/dL ed Elph-mC 14:16 nc Albumin 02-26- 1.6 complet /Glob 016 g/dL ed SerPl 14:16 BUN/Cre 15.5 7.0-25. complet at 016 0 ed SerPl 14:16 Anion 02-26-2 8.0 3.0-11. complet Gap3 016 mmol/L 0 ed SerPl-s 14:16 Cnc Encounters Encounter Start End Date Code Location Performer Type Date Emergency RAEGAN Dillard (ER) 3 09:57 3 11:24 [facility] Joo Babcock
--- OUTSIDE RECORDS SUMMARY | 2016-07-28 20:36 | External Medical Summary Rpt ---
Author Author , Organization [employer] Address Unknown Phone Unavailable Care Team Providers Care Doctor Podiatric Medicine Name Role Phone Joo Dillard Unavailable Unavailable AURA DESIR, Joo Dillard III, MD Purpose Continuity of Care Document - 09-11-2012 through 2016 Problems Code Diagnosis DOS Provider Status 305.1 305.1 09-11-2012 [place] TOBACCO USE [facility] 401.9 401.9 09-11-2012 [place] HYPERTENSIO [facility] 847.0 847.0 09-11-[address] [facility]ECK [facility] 847.1 847.1 09-11-2012 [facility] [address] [facility] REGION 847.2 847.2 09-11-2012 [facility] [address]UMBAR [facility] REGION E813.0 E813.0 09-11-2012 [facility]-OTH [facility] E849.5 E849.5 09-11-2012 [facility] WAY C34.92 Malignant neoplasm of unspecified [...] UA Dipstick Pnl Ur (07-18-2016 14:13) Color [id number] Yellow, complet Ur 017 09 Straw ed 14:13 Yellow color SCT Clarity [id number] Clear complet Ur 017 01 ed 14:13 Clear SCT pH Ur 6.0 5.0-8.0 complet Strip.a 017 ed uto 14:13 Sp Gr 1.010 1.005-1 complet Ur 017 .030 ed Strip 14:13 Glucose 5404572 Negativ complet Ur 017 09 e ed Strip-m 14:13 Negativ Cnc e SCT Ketones 9591674 Negativ complet Ur Ql 017 09 e ed Strip 14:13 Negativ e SCT Bilirub [id number] Negativ complet Ur Ql 017 09 e ed Strip 14:13 Negativ e SCT Hgb Ur 2751886 Negativ complet Ql 017 09 e ed Strip.a 14:13 Negativ uto e SCT Prot Ur [id number] Negativ complet Ql 017 09 e ed Strip 14:13 Negativ e SCT Leukocy 7950863 Negativ complet te 017 09 e ed esteras 14:13 Negativ e Ur Ql e SCT Strip.a uto Nitrite [id number] Negativ complet Ur Ql 017 09 e [...] Cells Counted Bld (06-23-2016 11:27) RBC 06-23-2 [id number] Normal complet morph 017 01 ed Bld 11:27 Normal result SCT WBC 5936000 Normal complet morph 017 01 ed Bld 11:27 Normal result SCT Plat 6011559 Normal complet morph 017 01 ed Bld [...] UA Dipstick Pnl Ur (06-06-2016 11:48) Color [id number] Yellow, complet Ur 017 09 Straw ed 11:48 Yellow color SCT Clarity 6460122 Clear complet Ur 017 01 ed 11:48 Clear SCT pH Ur 6.0 5.0-8.0 complet Strip.a 017 ed uto 11:48 Sp Gr 1.025 1.005-1 complet Ur 017 .030 ed Strip 11:48 Glucose 4772574 Negativ complet Ur 017 09 e ed Strip-m 11:48 Negativ Cnc e SCT Ketones 1563639 Negativ complet Ur Ql 017 09 e ed Strip 11:48 Negativ e SCT Bilirub 5762969 Negativ complet Ur Ql 017 09 e ed Strip 11:48 Negativ e SCT Hgb Ur 0800256 Negativ complet Ql 017 04 e ed Strip.a 11:48 Small uto SCT Prot Ur 0413228 Negativ complet Ql 017 09 e ed Strip 11:48 Negativ e SCT Leukocy 06-06-2 1595709 Negativ complet te 017 09 e ed esteras 11:48 Negativ e Ur Ql e SCT Strip.a uto Nitrite 06-06-2 [id number] Negativ complet Ur Ql 017 09 e [...] UA Dipstick Pnl Ur (05-16-2016 10:28) Color 1938124 Yellow, complet Ur 017 09 Straw ed 10:28 Yellow color SCT Clarity 7159201 Clear complet Ur 017 01 ed 10:28 Clear SCT pH Ur 6.0 5.0-8.0 complet Strip.a 017 ed uto 10:28 Sp Gr 1.010 1.005-1 complet Ur 017 .030 ed Strip 10:28 Glucose 3964660 Negativ complet Ur 017 09 e ed Strip-m 10:28 Negativ Cnc e SCT Ketones 9420520 Negativ complet Ur Ql 017 09 e ed Strip 10:28 Negativ e SCT Bilirub 4436279 Negativ complet Ur Ql 017 09 e ed Strip 10:28 Negativ e SCT Hgb Ur 6735737 Negativ complet Ql 017 09 e ed Strip.a 10:28 Negativ uto e SCT Prot Ur 2555666 Negativ complet Ql 017 09 e ed Strip 10:28 Negativ e SCT Leukocy 5183300 Negativ complet te 017 09 e ed esteras 10:28 Negativ e Ur Ql e SCT Strip.a uto Nitrite 2414577 Negativ complet Ur Ql 017 09 e [...] UA Dipstick Pnl Ur (04-25-2016 09:41) Color 4314576 Yellow, complet Ur 017 09 Straw ed 09:41 Yellow color SCT Clarity 1083605 Clear complet Ur 017 01 ed 09:41 Clear SCT pH Ur 5.0 5.0-8.0 complet Strip.a 017 ed uto 09:41 Sp Gr 1.010 1.005-1 complet Ur 017 .030 ed Strip 09:41 Glucose 5218132 Negativ complet Ur 017 09 e ed Strip-m 09:41 Negativ Cnc e SCT Ketones 4034396 Negativ complet Ur Ql 017 09 e ed Strip 09:41 Negativ e SCT Bilirub 9779801 Negativ complet Ur Ql 017 09 e ed Strip 09:41 Negativ e SCT Hgb Ur 7825113 Negativ complet Ql 017 09 e ed Strip.a 09:41 Negativ uto e SCT Prot Ur 4985263 Negativ complet Ql 017 09 e ed Strip 09:41 Negativ e SCT Leukocy 1900165 Negativ complet te 017 09 e ed esteras 09:41 Negativ e Ur Ql e SCT Strip.a uto Nitrite 6416841 Negativ complet Ur Ql 017 09 e [...] RAEGAN Dillard (ER) 3 09:57 3 11:24 [facility] Joo Babcock
--- OUTSIDE RECORDS SUMMARY | 2016-07-28 20:37 | External Medical Summary Rpt ---
Demographics Preferred Language Marshallese Marital Status Unknown Jain Affiliation Unknown Race Unknown Ethnic Group Unknown Author Author , Organization [employer] Address Unknown Phone Unavailable Purpose Continuity of Care Document - through 2016 Immunization No patient found.
--- OUTSIDE RECORDS SUMMARY | 2016-07-28 20:37 | External Medical Summary Rpt ---
Demographics Preferred Language Iraqi Marital Status Unknown Gnosticist Affiliation Unknown Race Unknown Ethnic Group Unknown Author Author , Organization [employer] Address Unknown Phone Unavailable Purpose Continuity of Care Document - through 2016 Immunization No patient found.
--- NOTE | 2016-07-28 21:38 | RADIOLOGY REPORT PS360 ---
HUMERUS-RT COMPARISON: None HISTORY: Patient with known lung carcinoma fell at home today complaining right arm pain TECHNIQUE: AP and oblique views FINDINGS: No obvious fracture of the proximal third of the humerus and there is suggestion of radiolucency at the fracture site and I suspect a probable pathologic fracture. There is there is 132 degrees of angulation at the fracture site. There is prominent and diffuse soft tissue swelling of the proximal arm and shoulder. IMPRESSION: Fracture proximal third of the humerus likely pathologic fracture with angulation as noted
[2016-07-28 23:52] VITALS: BP 113/82
== END 2016-07-28 22:45 | disposition home or self-care (01) ==
LOC: ER 19:55
DX: S42.331A Displaced oblique fracture of shaft of humerus, right arm, initial encounter for closed fracture (principal); C34.90 Malignant neoplasm of unspecified part of unspecified bronchus or lung; W01.0XXA Fall on same level from slipping, tripping and stumbling without subsequent striking against object, initial encounter; Y92.007 Garden or yard of unspecified non-institutional (private) residence as the place of occurrence of the external cause
CPT/HCPCS: J2405